=== PATIENT | male | born 1960 | race Caucasian/White ===

== ENCOUNTER 2021-04-21 21:15 | Inpatient (IN) | payer OTHER ==
[~2021-04-21] VITALS: Ht 175.3 cm; Wt 79.1 kg
[2021-04-21 14:29] VITALS: BP 140/83
[2021-04-21] MEDS ORDERED: DEXAMETHASONE SOD PHOS 4 MG/ML VIAL IVP ONE (21:30)
--- NOTE | 2021-04-21 21:30 | PHYS DOC ---
General Adult HPI: HPI: Patient is a 60 year old male who presents with progressive shortness of breath after testing positive for Covid. 04/07 Covid + Not vaccinated Has had progressive fatigue, myalgias, fevers, cough, and shortness of breath. Has some mild chest tightness especially when coughing. Has taken Z-pack x2. Denies having any medical problems or chronic medications. EMS had RA sat at 81%. Brought to 91% on 6lpm NC. Review of Systems: Review of Systems: Constitutional: + fever and chills. [] Eyes: Denies change in visual acuity. [] HENT: + nasal congestion. [] Respiratory: + cough and shortness of breath. [] Cardiovascular: Denies chest pain or edema. [] GI: Denies abdominal pain, nausea, vomiting, bloody stools or diarrhea. [] : Denies dysuria. [] Musculoskeletal: Denies back pain or joint pain. [] Integument: Denies rash. [] Neurologic: Denies headache, focal weakness or sensory changes. [] Endocrine: Denies polyuria or polydipsia. [] Lymphatic: Denies swollen glands. [] Psychiatric: Denies depression or anxiety. [] Heart Score: C/O Chest Pain: N/A Risk Factors: Risk Factors: DM, Current or recent (<one month) smoker, HTN, HLP, family history of CAD, obesity. Risk Scores: Score 0 - 3: 2.5% MACE over next 6 weeks - Discharge Home Score 4 - 6: 20.3% MACE over next 6 weeks - Admit for Clinical Observation Score 7 - 10: 72.7% MACE over next 6 weeks - Early Invasive Strategies Physical Exam: PE: Constitutional: Well developed, well nourished, no acute distress, non-toxic appearance. [] HENT: Normocephalic, atraumatic, bilateral external ears normal, oropharynx moist, no oral exudates, nose normal. [] Eyes: PERRLA, EOMI, conjunctiva normal, no discharge. [] Neck: Normal range of motion, no tenderness, supple, no stridor. [] Cardiovascular:Heart rate regular rhythm, no murmur [] Lungs & Thorax: Bilateral breath sounds clear to auscultation [] Abdomen: Bowel sounds normal, soft, no tenderness, no masses, no pulsatile masses. [] Skin: Warm, dry, no erythema, no rash. [] Back: No tenderness, no CVA tenderness. [] Extremities: No tenderness, no cyanosis, no clubbing, ROM intact, no edema. [] Neurologic: Alert and oriented X 3, normal motor function, normal sensory func tion, no focal deficits noted. [] Psychologic: Affect normal, judgement normal, mood normal. [] EKG: EKG: Sinus rhythm rate 96. Normal axis. Slightly low prolonged HI interval 206. Otherwise normal intervals. No ST elevations, depressions, or T wave inversions. [] Radiology/Procedures: Radiology/Procedures: [] Impression: [facility] [address] [place] [address] IMAGING REPORT Signed PATIENT: KATARINA REDDACCOUNT: [id number] : 1960 LOCATION: ER AGE: 60 SEX: M EXAM STATUS: PRE ER ORD. PHYSICIAN: REAL DE LA GARZA MD REASON: hypoxia, covid + PROCEDURE: CHEST AP ONLY XR CHEST 1V INDICATION: Reason: hypoxia, covid + / Spl. Instructions: / History: . COMPARISON STUDY: None. FINDINGS: Lungs: Normal lung volume. Patchy bilateral opacities. Pleura: No pleural effusion or pneumothorax. Heart and Mediastinum: The cardiomediastinal silhouette is normal. The great vessels of the thorax are normal. Bones and Soft Tissues: The bones and soft tissues are within normal limits. IMPRESSION: Patchy bilateral opacities, concerning for multifocal infection. Electronically signed by: Dre Turner MD (04/21/2021 10:08 PM) RUST DICTATED and SIGNED BY: DRE TURNER MD DATE: 04/21/21 [id number] 0 Course & Med Decision Making: Course & Med Decision Making Pertinent Labs and Imaging studies reviewed. (See chart for details) Patient is 60-year-old male who tested positive for Covid on 04/07 who is presented with progressive shortness of breath. Hypoxia to 81% on room air for EMS prior to arrival. Now satting in the low 90s on 6 L/min nasal cannula. Remainder vital signs are stable. Will clearly required admission given hypoxia. Will obtain CXR, labs, EKG. Will treat with supplemental oxygen and steroids. Will defer antibiotics until labs and CXR result. 2129 CXR w/ multifocal pneumonia. WBC 15.5, concerning for secondary infection. Will give CTX and doxycycline. 2231 Dragon Disclaimer: Dragon Disclaimer: This electronic medical record was generated, in whole or in part, using a voice recognition dictation system. Departure Departure Impression: Primary Impression: COVID-19 Additional Impressions: Acute respiratory failure with hypoxia Multifocal pneumonia Disposition: ADMITTED INPATIENT Admitting Physician: GOLDY Rocha) Condition: STABLE REAL DE LA GARZA MD Apr 21, 2021 21:30
[2021-04-21 21:38] VITALS: BP 128/73
[2021-04-21 22:08] VITALS: BP 119/71
--- NOTE | 2021-04-21 22:10 | RAD ---
XR CHEST 1V INDICATION: Reason: hypoxia, covid + / Spl. Instructions: / History: . COMPARISON STUDY: None. FINDINGS: Lungs: Normal lung volume. Patchy bilateral opacities. Pleura: No pleural effusion or pneumothorax. Heart and Mediastinum: The cardiomediastinal silhouette is normal. The great vessels of the thorax ar e normal. Bones and Soft Tissues: The bones and soft tissues are within normal limits. IMPRESSION: Patchy bilateral opacities, concerning for multifocal infection. Electronically signed by: Ac Turner MD (04/21/2021 10:08 PM) [facility]
[2021-04-21 22:12] LABS: BASO # 0.3 x10^3/uL (0.0-0.2); BASO % 2 % (0-3); EOS % 0 % (0-3); HEMATOCRIT 38.2 % (39.0-53.0); HEMOGLOBIN 13.8 g/dL (13.0-17.5); LYMPH # 0.4 x10^3/uL (1.0-4.8); LYMPH % 2 % (24-48); MEAN CORPUSCULAR HEMOGLOBIN 31 pg (25-35); MEAN CORPUSCULAR HGB CONC 36 g/dL (31-37); MEAN CORPUSCULAR VOLUME 86 fL (79-100); MONO # 0.9 x10^3/uL (0.0-1.1); MONO % 6 % (0-9); NEUT # 13.9 x10^3/uL (1.8-7.7); NEUT % 90 % (31-73); PLATELET COUNT 344 x10^3/uL (140-400); RED BLOOD COUNT 4.43 x10^6/uL (4.30-5.70); RED CELL DISTRIBUTION WIDTH 12.2 % (11.5-14.5); WHITE BLOOD COUNT 15.5 x10^3/uL (4.0-11.0)
[2021-04-21 22:25] LABS: CALCIUM 8.9 mg/dL (8.5-10.1); CREATININE 1.2 mg/dL (0.7-1.3); GFR 61.6; POTASSIUM 4.1 mmol/L (3.5-5.1)
[2021-04-21] MEDS ORDERED: cefTRIAXone IV Push 1 GM VIAL. IVP ONE (22:30)
[2021-04-21] MEDS ORDERED: DOXYCYCLINE HYCLATE 100 MG TABLET PO ONE (22:30)
[2021-04-21 22:32] LABS: ALBUMIN 2.3 g/dL (3.4-5.0); ALBUMIN/GLOBULIN RATIO 0.5 (1.0-1.7); TOTAL BILIRUBIN 0.8 mg/dL (0.2-1.0)
[2021-04-21 22:38] VITALS: BP 124/74
[2021-04-21 22:39] LABS: % LYMPHS 3 % (24-48); % MONOS 3 % (0-10); % SEGS 94 % (35-66); PLT ESTIMATE ADEQUATE (ADEQUATE)
[2021-04-21 23:08] VITALS: BP 119/76
--- NOTE | 2021-04-22 01:34 | EKG ---
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
[2021-04-22 02:07] VITALS: BP 118/76
[2021-04-22] MEDS ORDERED: No Home Meds (03:01)
[2021-04-22 07:00] VITALS: BP 105/68
[2021-04-22] MEDS ORDERED: PIP/TAZO PER PHARMACY MC PRN (08:15)
[2021-04-22] MEDS: PIPERACILLIN/TAZOBACTAM 3.375 GM in IV NORMAL SALINE 50ML 50 ML IV SCH ×4 (08:31→23:50)
[2021-04-22] MEDS: methylPREDNISolone SOD SUCC PF 40 MG/ML VIAL. IV SCH ×2 (09:24→21:06)
[2021-04-22] MEDS: MULTIVITAMIN with MINERAL TABLET. PO SCH (09:25)
[2021-04-22] MEDS: DOXYCYCLINE HYCLATE 100 MG in IV DEXTROSE 5% 100ML 100 ML IV SCH ×2 (09:25→21:05)
[2021-04-22] MEDS: guaiFENesin/CODEINE 100mg/10mg 5 ML LIQUID PO PRN ×2 (09:25→21:06)
[2021-04-22 11:00] VITALS: BP 111/69
[2021-04-22] MEDS ORDERED: REMDESIVIR LOAD in IV NORMAL SALINE 250ML TV IV ONE (11:00)
--- NOTE | 2021-04-22 12:50 | NUR ---
SS following for discharge planning. SS reviewed pt chart and discussed with pt RN. Pt is from home with spouse and is currently requiring oxygen at six liters nasal canula. COVID19 positive. Pt on IV Zosyn, IV Doxycycline, and IV Solu-Medrol. SS will continue to follow for discharge planning.
--- NOTE | 2021-04-22 12:55 | HP ---
ADMIT DATE: 04/22/2021 CHIEF COMPLAINT: Shortness of breath. 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 He presents with shortness of breath. He is COVID positive for the past 16 days. He states his symptoms are simply worsening. He cannot breathe. He can barely move. He increased his home meds, but that did not work. Moving makes it worse, sitting still makes it better. I discussed the case with ER physician. We are admitting the patient per COVID-19 protocol. PAST MEDICAL HISTORY: Benign. ALLERGIES: CODEINE. FAMILY HISTORY: Diabetes. SOCIAL HISTORY: Does not drink, smoke or take drugs. He works at the [employer]. MEDICATIONS: Reviewed, please refer to the medication. REVIEW OF SYSTEMS: GENERAL: No history of weight change, weakness or fevers. SKIN: No bruising, hair changes or rashes. EYES: No blurred, double or loss of vision. NOSE AND THROAT: No history of nosebleeds, hoarseness or sore throat. HEART: No history of palpitations, chest pain or shortness of breath on exertion. LUNGS: He complains of shortness of breath. GASTROINTESTINAL: Denies changes in appetite, nausea, vomiting, diarrhea or constipation. GENITOURINARY: No history of frequency, urgency, hesitancy or nocturia. NEUROLOGIC: Denies history of numbness, tingling, tremor or weakness. PSYCHIATRIC: No history of panic, anxiety or depression. ENDOCRINE: No history of heat or cold intolerance, polyuria or polydipsia. EXTREMITIES: Denies muscle weakness, joint pain, pain on walking or stiffness. PHYSICAL EXAMINATION: VITALS: Within normal limits and are stable. GENERAL: No apparent distress. Alert and oriented. HEENT: Normal cephalic atraumatic, external auditory canals are patent. EYES: Extraocular muscles are intact, pupils are equally round and reactive to light and accommodation. MUSCULOSKELETAL: Well developed, well nourished, good range of motion. ENDOCRINE: No thyromegaly was palpated. LYMPHATICS: No cervical chain or axillary nodes were noted. HEMATOPOIETIC: No bruising. NECK: Supple, no JVD, no thyromegaly was noted. LUNGS: Clear to auscultation in all lung eddy without rhonchi or wheezing. HEART: RRR, S1, S2 present. Peripheral pulses intact, no obvious murmurs were noted. ABDOMEN: Soft, nontender. Positive bowel sounds no organomegaly, normal bowel sounds. EXTREMITIES: Without any cyanosis, clubbing, or edema. Pedal pulses intact, Homans sign is negative. NEUROLOGIC: Normal speech, normal tone. A and O x 3, moves all extremities, no obvious focal deficits. PSYCHIATRIC: Normal affect, normal mood. Stable. SKIN: No ulcerations or rashes, good skin turgor, no jaundice. VASCULAR: Good capillary refill, neurovascular bundle appears to be intact. LABORATORY DATA: White count is 15. Electrolytes normal other than a sodium of 134. IMAGING: Chest x-ray shows bilateral haziness consistent with probable atypical pneumonia by my eye. ASSESSMENT AND PLAN: COVID-19, respiratory failure. The patient will be admitted. We will start IV remdesivir, IV Solu-Medrol, IV Zosyn, IV doxycycline, multiple vitamins with minerals, beta agonist and O2 per nasal cannula, codeine cough syrup and aspirin, home meds, DVT prophylaxis. Full code. PROGNOSIS: Guarded. MEERA DR: Edison TID: [id number]
[2021-04-22 15:00] VITALS: BP 119/71
[2021-04-22 19:41] VITALS: BP 112/66
[2021-04-22] MEDS: LACTOBACILLUS RHAMNOSUS GG 1 CAPSULE. PO SCH (21:05)
[2021-04-22 23:33] VITALS: BP 116/71
[2021-04-23 03:55] VITALS: BP 115/76
[2021-04-23] MEDS: PIPERACILLIN/TAZOBACTAM 3.375 GM in IV NORMAL SALINE 50ML 50 ML IV SCH ×3 (05:42→17:25)
[2021-04-23 07:00] VITALS: BP 116/74
[2021-04-23] MEDS: ASPIRIN CHEWABLE 81 MG TABLET. PO SCH (08:59)
[2021-04-23] MEDS: DOXYCYCLINE HYCLATE 100 MG in IV DEXTROSE 5% 100ML 100 ML IV SCH ×2 (08:59→20:34)
[2021-04-23] MEDS: MULTIVITAMIN with MINERAL TABLET. PO SCH (09:00)
[2021-04-23] MEDS: LACTOBACILLUS RHAMNOSUS GG 1 CAPSULE. PO SCH ×2 (09:00→20:34)
[2021-04-23] MEDS: guaiFENesin/CODEINE 100mg/10mg 5 ML LIQUID PO PRN ×2 (09:00→17:24)
[2021-04-23] MEDS: methylPREDNISolone SOD SUCC PF 40 MG/ML VIAL. IV SCH ×2 (09:00→20:34)
--- NOTE | 2021-04-23 09:16 | PDOC ---
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 He presents with shortness of breath. He is COVID positive for the past 16 days. He states his symptoms are simply worsening. He cannot breathe. He can barely move. He increased his home meds, but that did not work. Moving makes it worse, sitting still makes it better. I discussed the case with ER physician. We are admitting the patient per COVID-19 protocol. 04/23: Patient seen and examined. Patient endorses minor improvement in symptoms. Currently on 5L O2. Discussed with RN. Chart reviewed. Vitals/I&O Vitals/I&O: Vital Signs Date Time Temp Pulse Resp B/P (MAP) Pulse Ox O2 Delivery O2 Flow Rate FiO2 04/23/21 07:00 97.5 67 18 116/74 (88) 93 Nasal Cannula 6.0 97.5 I & O 04/22/21 04/22/21 04/23/21 15:00 23:00 07:00 Intake Total 600 ml 300 ml 610 ml Output Total 400 ml Balance 200 ml 300 ml 610 ml Physical Exam General: Alert, Oriented X3, Cooperative, mild distress Heart: Regular rate Lungs: Clear Abdomen: Normal bowel sounds, No tenderness Extremities: No clubbing, No cyanosis, No edema Review of Systems Review of Systems: Patient endorses shortness of breath. Patient denies vomiting. Assessment and Plan Assessmemt and Plan Problems Medical Problems: (1) Acute respiratory failure with hypoxia Status: Acute (2) COVID-19 Status: Acute (3) Multifocal pneumonia Status: Acute A: Acute respiratory failure with hypoxia Acute COVID-19 infection (Onset: 04/06/21) Acute multifocal pneumonia Plan: 1. Continue COVID-19 protocol (IV Remdesivir, IV Solu-Medrol, IV Zosyn, IV doxycycline, vitamins with minerals, O2 per nasal cannula, Robitussin, aspirin) 2. Encourage PO intake (regular diet) 3. Trend labs 4. PT/OT 5. Home meds 6. DVT prophylaxis 7. Full code. Comment Review of Relevant I have reviewed the following items heidy (where applicable) has been applied. Medications: Current Medications Medications (Trade) Dose Ordered Sig/Annita Route PRN Reason Start Time Stop Time Status Last Admin Dose Admin Multivitamins (Thera M Plus) 1 tab DAILY PO 04/22/21 09:00 04/22/21 09:25 Doxycycline Hyclate 100 mg/ Dextrose 100 ml @ 50 mls/hr Q12HR IV 04/22/21 09:00 04/22/21 21:05 Methylprednisolone Sodium Succinate (SOLU-Medrol 40MG VIAL) 40 mg BID IV 04/22/21 09:00 04/22/21 21:06 Remdesivir 200 mg/ Sodium Chloride 210 ml @ 210 mls/hr 1X ONCE IV 04/22/21 11:00 04/22/21 11:59 DC 04/22/21 11:47 Lactobacillus Rhamnosus (Culturelle) 1 cap BID PO 04/22/21 21:00 04/22/21 21:05 Justifications for Admission Other Justification PORTER YEPEZ III DO Apr 23, 2021 09:16
[2021-04-23 11:00] VITALS: BP 115/71
[2021-04-23] MEDS: REMDESIVIR 100mg in NORMAL SALINE 250ML X 4 DAYS IV SCH (11:59)
[2021-04-23] MEDS ORDERED: POLYETHYLENE GLYCOL 3350 17 GM PACKET. PO PRN (14:15)
[2021-04-23] MEDS ORDERED: DOCUSATE SODIUM 100 MG CAPSULE. PO PRN (14:15)
[2021-04-23 15:00] VITALS: BP 116/75
[2021-04-23 19:00] VITALS: BP 108/64
[2021-04-23 23:00] VITALS: BP 133/77
[2021-04-24] MEDS: PIPERACILLIN/TAZOBACTAM 3.375 GM in IV NORMAL SALINE 50ML 50 ML IV SCH ×4 (00:27→17:53)
[2021-04-24 03:00] VITALS: BP 121/74
[2021-04-24] MEDS: guaiFENesin/CODEINE 100mg/10mg 5 ML LIQUID PO PRN ×3 (06:11→22:18)
[2021-04-24 07:00] VITALS: BP 115/77
[2021-04-24 08:01] LABS: BASO % 0 % (0-3); EOS % 0 % (0-3); HEMATOCRIT 38.7 % (39.0-53.0); HEMOGLOBIN 13.5 g/dL (13.0-17.5); LYMPH # 0.4 x10^3/uL (1.0-4.8); LYMPH % 4 % (24-48); MEAN CORPUSCULAR HEMOGLOBIN 31 pg (25-35); MEAN CORPUSCULAR HGB CONC 35 g/dL (31-37); MEAN CORPUSCULAR VOLUME 89 fL (79-100); MONO # 0.6 x10^3/uL (0.0-1.1); MONO % 6 % (0-9); NEUT # 9.7 x10^3/uL (1.8-7.7); NEUT % 91 % (31-73); PLATELET COUNT 322 x10^3/uL (140-400); RED BLOOD COUNT 4.35 x10^6/uL (4.30-5.70); RED CELL DISTRIBUTION WIDTH 12.3 % (11.5-14.5); WHITE BLOOD COUNT 10.7 x10^3/uL (4.0-11.0)
[2021-04-24 08:20] LABS: ALBUMIN/GLOBULIN RATIO 0.5 (1.0-1.7); CALCIUM 8.7 mg/dL (8.5-10.1); CREATININE 1.1 mg/dL (0.7-1.3); GFR 68.1; POTASSIUM 4.5 mmol/L (3.5-5.1); TOTAL BILIRUBIN 0.8 mg/dL (0.2-1.0); TOTAL PROTEIN 6.1 g/dL (6.4-8.2)
[2021-04-24] MEDS: ASPIRIN CHEWABLE 81 MG TABLET. PO SCH (08:41)
[2021-04-24] MEDS: MULTIVITAMIN with MINERAL TABLET. PO SCH (08:41)
[2021-04-24] MEDS: LACTOBACILLUS RHAMNOSUS GG 1 CAPSULE. PO SCH ×2 (08:41→22:17)
[2021-04-24] MEDS: methylPREDNISolone SOD SUCC PF 40 MG/ML VIAL. IV SCH ×2 (08:41→22:17)
[2021-04-24] MEDS: DOXYCYCLINE HYCLATE 100 MG in IV DEXTROSE 5% 100ML 100 ML IV SCH ×2 (08:45→22:16)
[2021-04-24 10:37] VITALS: BP 121/80
[2021-04-24] MEDS: REMDESIVIR 100mg in NORMAL SALINE 250ML X 4 DAYS IV SCH (11:32)
--- NOTE | 2021-04-24 11:41 | PDOC ---
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 He presents with shortness of breath. He is COVID positive for the past 16 days. He states his symptoms are simply worsening. He cannot breathe. He can barely move. He increased his home meds, but that did not work. Moving makes it worse, sitting still makes it better. I discussed the case with ER physician. We are admitting the patient per COVID-19 protocol. 04/23: Patient seen and examined. Patient endorses minor improvement in symptoms. Currently on 5L O2. Discussed with RN. Chart reviewed. 04/24: Patient seen and examined. He continues to be on 5L O2 per nasal cannula. He previously endorsed constipation and was started on laxatives; today he had 1 BM. He endorses acid reflux. Discussed with RN. Chart Reviewed. Labs show minor improvement, however, he appears in greater distress than previous day. Vitals/I&O Vitals/I&O: Vital Signs Date Time Temp Pulse Resp B/P (MAP) Pulse Ox O2 Delivery O2 Flow Rate FiO2 04/24/21 10:37 97.7 85 18 121/80 (94) 93 Nasal Cannula 6.0 97.7 I & O 04/23/21 04/23/21 04/24/21 15:00 23:00 07:00 Intake Total 400 ml 240 ml Balance 400 ml 240 ml Physical Exam General: Alert, Oriented X3, Cooperative, mild distress Heart: Regular rate Lungs: Clear Abdomen: Normal bowel sounds, No tenderness Extremities: No clubbing, No cyanosis, No edema Labs Labs: Laboratory Tests Test 04/24/21 06:40 White Blood Count 10.7 x10^3/uL (4.0-11.0) Red Blood Count 4.35 x10^6/uL (4.30-5.70) Hemoglobin 13.5 g/dL (13.0-17.5) Hematocrit 38.7 % (39.0-53.0) Mean Corpuscular Volume 89 fL (79-100) Mean Corpuscular Hemoglobin 31 pg (25-35) Mean Corpuscular Hemoglobin Concent 35 g/dL (31-37) Red Cell Distribution Width 12.3 % (11.5-14.5) Platelet Count 322 x10^3/uL (140-400) Neutrophils (%) (Auto) 91 % (31-73) Lymphocytes (%) (Auto) 4 % (24-48) Monocytes (%) (Auto) 6 % (0-9) Eosinophils (%) (Auto) 0 % (0-3) Basophils (%) (Auto) 0 % (0-3) Neutrophils # (Auto) 9.7 x10^3/uL (1.8-7.7) Lymphocytes # (Auto) 0.4 x10^3/uL (1.0-4.8) Monocytes # (Auto) 0.6 x10^3/uL (0.0-1.1) Eosinophils # (Auto) 0.0 x10^3/uL (0.0-0.7) Basophils # (Auto) 0.0 x10^3/uL (0.0-0.2) Sodium Level 139 mmol/L (136-145) Potassium Level 4.5 mmol/L (3.5-5.1) Chloride Level 106 mmol/L (98-107) Carbon Dioxide Level 29 mmol/L (21-32) Anion Gap 4 (6-14) Blood Urea Nitrogen 20 mg/dL (8-26) Creatinine 1.1 mg/dL (0.7-1.3) Estimated GFR (Cockcroft-Gault) 68.1 BUN/Creatinine Ratio 18 (6-20) Glucose Level 114 mg/dL (70-99) Calcium Level 8.7 mg/dL (8.5-10.1) Total Bilirubin 0.8 mg/dL (0.2-1.0) Aspartate Amino Transf (AST/SGOT) 35 U/L (15-37) Alanine Aminotransferase (ALT/SGPT) 78 U/L (16-63) Alkaline Phosphatase 80 U/L (46-116) Total Protein 6.1 g/dL (6.4-8.2) Albumin 2.0 g/dL (3.4-5.0) Albumin/Globulin Ratio 0.5 (1.0-1.7) Review of Systems Review of Systems: Patient endorses weakness and shortness of breath. Assessment and Plan Assessmemt and Plan Problems Medical Problems: (1) Acute respiratory failure with hypoxia Status: Acute (2) COVID-19 Status: Acute (3) Multifocal pneumonia Status: Acute Acute respiratory failure with hypoxia Acute COVID-19 infection (Onset: 04/06/21) Acute multifocal pneumonia Plan: 1. Continue COVID-19 protocol (IV Remdesivir, IV Solu-Medrol, IV Zosyn, IV doxycycline, vitamins with minerals, O2 per nasal cannula, Robitussin, aspirin) 2. Start Lovenox 40mg Q.D. - DVT prophylaxis 3. Start Protonix 40mg PO - for acid reflux 4. Trends labs 5. Encourage PO intake (regular diet) 6. Home meds 7. PT/OT 8. Full code. Comment Review of Relevant I have reviewed the following items heidy (where applicable) has been applied. Medications: Current Medications Medications (Trade) Dose Ordered Sig/Annita Route PRN Reason Start Time Stop Time Status Last Admin Dose Admin Docusate Sodium (Colace) 100 mg PRN DAILY PRN PO HARD STOOLS 04/23/21 14:15 04/24/21 08:41 Polyethylene Glycol (miraLAX PACKET) 17 gm PRN DAILY PRN PO CONSTIPATION 04/23/21 14:15 04/24/21 08:41 Justifications for Admission Other Justification PORTER YEPEZ III DO Apr 24, 2021 11:41
--- NOTE | 2021-04-24 12:17 | NUR ---
SW following. Discussed with RN, pt from home with spouse, 6L (does not use oxygen at home), regular diet. COVID-19 positive. Pt will need a 6 minute walk prior to discharge if still requiring oxygen. SW will continue to follow.
[2021-04-24] MEDS: ENOXAPARIN 40 MG/0.4 ML SYRINGE. SQ SCH (13:16)
[2021-04-24] MEDS: PANTOPRAZOLE 40 MG TABLET.DR. PO SCH (13:17)
[2021-04-24 15:00] VITALS: BP 121/72
[2021-04-24 19:00] VITALS: BP 122/59
[2021-04-24] MEDS: diphenhydrAMINE HCL 25 MG CAPSULE PO PRN (22:34)
[2021-04-24 23:00] VITALS: BP 107/67
[2021-04-25 03:01] VITALS: BP 127/80
[2021-04-25] MEDS: PIPERACILLIN/TAZOBACTAM 3.375 GM in IV NORMAL SALINE 50ML 50 ML IV SCH ×4 (05:43→20:04)
[2021-04-25 07:00] VITALS: BP 107/66
[2021-04-25 08:08] LABS: BASO % 0 % (0-3); EOS % 0 % (0-3); HEMATOCRIT 40.7 % (39.0-53.0); HEMOGLOBIN 14.1 g/dL (13.0-17.5); LYMPH # 0.4 x10^3/uL (1.0-4.8); LYMPH % 5 % (24-48); MEAN CORPUSCULAR HEMOGLOBIN 31 pg (25-35); MEAN CORPUSCULAR HGB CONC 35 g/dL (31-37); MEAN CORPUSCULAR VOLUME 88 fL (79-100); MONO # 0.6 x10^3/uL (0.0-1.1); MONO % 6 % (0-9); NEUT # 8.2 x10^3/uL (1.8-7.7); NEUT % 89 % (31-73); PLATELET COUNT 339 x10^3/uL (140-400); RED CELL DISTRIBUTION WIDTH 12.6 % (11.5-14.5); WHITE BLOOD COUNT 9.3 x10^3/uL (4.0-11.0)
[2021-04-25 08:19] LABS: ALBUMIN 2.2 g/dL (3.4-5.0); ALBUMIN/GLOBULIN RATIO 0.5 (1.0-1.7); CALCIUM 9.1 mg/dL (8.5-10.1); CREATININE 1.1 mg/dL (0.7-1.3); GFR 68.1; POTASSIUM 5.5 mmol/L (3.5-5.1); TOTAL BILIRUBIN 0.9 mg/dL (0.2-1.0); TOTAL PROTEIN 6.3 g/dL (6.4-8.2)
[2021-04-25] MEDS: LACTOBACILLUS RHAMNOSUS GG 1 CAPSULE. PO SCH ×2 (08:51→20:30)
[2021-04-25] MEDS: PANTOPRAZOLE 40 MG TABLET.DR. PO SCH (08:51)
[2021-04-25] MEDS: ASPIRIN CHEWABLE 81 MG TABLET. PO SCH (08:51)
[2021-04-25] MEDS: MULTIVITAMIN with MINERAL TABLET. PO SCH (08:51)
[2021-04-25] MEDS: DOXYCYCLINE HYCLATE 100 MG in IV DEXTROSE 5% 100ML 100 ML IV SCH ×2 (08:52→20:31)
[2021-04-25] MEDS: methylPREDNISolone SOD SUCC PF 40 MG/ML VIAL. IV SCH ×2 (08:52→20:30)
--- NOTE | 2021-04-25 10:19 | PDOC ---
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 He presents with shortness of breath. He is COVID positive for the past 16 days. He states his symptoms are simply worsening. He cannot breathe. He can barely move. He increased his home meds, but that did not work. Moving makes it worse, sitting still makes it better. I discussed the case with ER physician. We are admitting the patient per COVID-19 protocol. 04/23: Patient seen and examined. Patient endorses minor improvement in symptoms. Currently on 5L O2 (04/25 Correction: 6L O2). Discussed with RN. Chart reviewed. 04/24: Patient seen and examined. He continues to be on 5L O2 (04/25 correction: 6L O2). He previously endorsed constipation and was started on laxatives; today he had 1 BM. He endorses acid reflux. Discussed with RN. Chart Reviewed. Labs show minor improvement, however, he appears in greater distress than previous day. 04/25: Patient seen and examined. His O2 requirements have decreased to 4.5L O2 per nasal cannula. He endorses feeling a lot better and looks less distressed. Exertional dyspnea continues to occur when walking to the bathroom. Discussed with RN. Chart reviewed. Vitals/I&O Vitals/I&O: Vital Signs Date Time Temp Pulse Resp B/P (MAP) Pulse Ox O2 Delivery O2 Flow Rate FiO2 04/25/21 07:00 97.7 56 20 107/66 (80) 91 97.7 04/25/21 03:01 Nasal Cannula 04/24/21 20:05 4.5 I & O 04/24/21 04/24/21 04/25/21 15:00 23:00 07:00 Output Total 600 ml 300 ml Balance -600 ml -300 ml Physical Exam General: Alert, Oriented X3, Cooperative, No acute distress Heart: Regular rate Lungs: Clear Abdomen: Normal bowel sounds, No tenderness Extremities: No clubbing, No cyanosis, No edema Labs Labs: Laboratory Tests Test 04/25/21 07:40 White Blood Count 9.3 x10^3/uL (4.0-11.0) Red Blood Count 4.60 x10^6/uL (4.30-5.70) Hemoglobin 14.1 g/dL (13.0-17.5) Hematocrit 40.7 % (39.0-53.0) Mean Corpuscular Volume 88 fL (79-100) Mean Corpuscular Hemoglobin 31 pg (25-35) Mean Corpuscular Hemoglobin Concent 35 g/dL (31-37) Red Cell Distribution Width 12.6 % (11.5-14.5) Platelet Count 339 x10^3/uL (140-400) Neutrophils (%) (Auto) 89 % (31-73) Lymphocytes (%) (Auto) 5 % (24-48) Monocytes (%) (Auto) 6 % (0-9) Eosinophils (%) (Auto) 0 % (0-3) Basophils (%) (Auto) 0 % (0-3) Neutrophils # (Auto) 8.2 x10^3/uL (1.8-7.7) Lymphocytes # (Auto) 0.4 x10^3/uL (1.0-4.8) Monocytes # (Auto) 0.6 x10^3/uL (0.0-1.1) Eosinophils # (Auto) 0.0 x10^3/uL (0.0-0.7) Basophils # (Auto) 0.0 x10^3/uL (0.0-0.2) Sodium Level 141 mmol/L (136-145) Potassium Level 5.5 mmol/L (3.5-5.1) Chloride Level 106 mmol/L (98-107) Carbon Dioxide Level 30 mmol/L (21-32) Anion Gap 5 (6-14) Blood Urea Nitrogen 20 mg/dL (8-26) Creatinine 1.1 mg/dL (0.7-1.3) Estimated GFR (Cockcroft-Gault) 68.1 BUN/Creatinine Ratio 18 (6-20) Glucose Level 120 mg/dL (70-99) Calcium Level 9.1 mg/dL (8.5-10.1) Total Bilirubin 0.9 mg/dL (0.2-1.0) Aspartate Amino Transf (AST/SGOT) 40 U/L (15-37) Alanine Aminotransferase (ALT/SGPT) 102 U/L (16-63) Alkaline Phosphatase 58 U/L (46-116) Total Protein 6.3 g/dL (6.4-8.2) Albumin 2.2 g/dL (3.4-5.0) Albumin/Globulin Ratio 0.5 (1.0-1.7) Review of Systems Review of Systems: Patient denies nausea and vomiting. Assessment and Plan Assessmemt and Plan Problems Medical Problems: (1) Acute respiratory failure with hypoxia Status: Acute (2) COVID-19 Status: Acute (3) Multifocal pneumonia Status: Acute Acute respiratory failure with hypoxia Acute COVID-19 infection (Onset: 04/06/21) Acute multifocal pneumonia Plan: 1. Continue COVID-19 protocol (IV Remdesivir, IV Solu-Medrol, IV Zosyn, IV doxycycline, vitamins with minerals, O2 per nasal cannula, Robitussin, aspirin) 2. DVT prophylaxis: Lovenox 3. Trends labs 4. Encourage PO intake (regular diet) 5. Home meds 6. PT/OT 7. Full code. 8. Discharge disposition pending Comment Review of Relevant I have reviewed the following items heidy (where applicable) has been applied. Medications: Current Medications Medications (Trade) Dose Ordered Sig/Annita Route PRN Reason Start Time Stop Time Status Last Admin Dose Admin Enoxaparin Sodium (Lovenox 40mg Syringe) 40 mg Q24H SQ 04/24/21 12:00 04/24/21 13:16 Pantoprazole Sodium (Protonix) 40 mg DAILYAC PO 04/24/21 12:00 04/25/21 08:51 Justifications for Admission Other Justification PORTER YEPEZ III DO Apr 25, 2021 10:19
[2021-04-25 11:00] VITALS: BP 114/72
--- NOTE | 2021-04-25 11:50 | NUR ---
SW following. Discussed with RN, pt from home with spouse, 4.5L (does not use oxygen at home), improving. Pt will need a 6 minute walk prior to discharge. COVID19 positive. SW will continue to follow.
[2021-04-25] MEDS: REMDESIVIR 100mg in NORMAL SALINE 250ML X 4 DAYS IV SCH (12:00)
[2021-04-25 15:00] VITALS: BP 125/79
[2021-04-25] MEDS: ENOXAPARIN 40 MG/0.4 ML SYRINGE. SQ SCH (17:26)
[2021-04-25 19:55] VITALS: BP 112/76
[2021-04-25] MEDS: diphenhydrAMINE HCL 25 MG CAPSULE PO PRN (22:08)
[2021-04-25 23:28] VITALS: BP 133/68
[2021-04-26] MEDS: PIPERACILLIN/TAZOBACTAM 3.375 GM in IV NORMAL SALINE 50ML 50 ML IV SCH ×3 (01:22→11:43)
[2021-04-26 03:25] VITALS: BP 104/70
[2021-04-26 06:38] VITALS: BP 120/75
[2021-04-26 06:52] LABS: ALBUMIN 2.2 g/dL (3.4-5.0); ALBUMIN/GLOBULIN RATIO 0.7 (1.0-1.7); CALCIUM 8.4 mg/dL (8.5-10.1); CREATININE 0.9 mg/dL (0.7-1.3); GFR 85.8; POTASSIUM 5.3 mmol/L (3.5-5.1); TOTAL BILIRUBIN 0.5 mg/dL (0.2-1.0); TOTAL PROTEIN 5.4 g/dL (6.4-8.2)
[2021-04-26 07:41] LABS: BASO # 0.1 x10^3/uL (0.0-0.2); BASO % 1 % (0-3); EOS % 0 % (0-3); HEMOGLOBIN 14.1 g/dL (13.0-17.5); LYMPH # 0.5 x10^3/uL (1.0-4.8); LYMPH % 5 % (24-48); MEAN CORPUSCULAR HEMOGLOBIN 31 pg (25-35); MEAN CORPUSCULAR HGB CONC 35 g/dL (31-37); MEAN CORPUSCULAR VOLUME 88 fL (79-100); MONO # 0.8 x10^3/uL (0.0-1.1); MONO % 7 % (0-9); NEUT % 87 % (31-73); PLATELET COUNT 320 x10^3/uL (140-400); RED BLOOD COUNT 4.53 x10^6/uL (4.30-5.70); RED CELL DISTRIBUTION WIDTH 12.5 % (11.5-14.5); WHITE BLOOD COUNT 10.3 x10^3/uL (4.0-11.0)
[2021-04-26] MEDS: ASPIRIN CHEWABLE 81 MG TABLET. PO SCH (08:50)
[2021-04-26] MEDS: MULTIVITAMIN with MINERAL TABLET. PO SCH (08:50)
[2021-04-26] MEDS: LACTOBACILLUS RHAMNOSUS GG 1 CAPSULE. PO SCH ×2 (08:50→20:54)
[2021-04-26] MEDS: PANTOPRAZOLE 40 MG TABLET.DR. PO SCH (08:50)
[2021-04-26] MEDS: methylPREDNISolone SOD SUCC PF 40 MG/ML VIAL. IV SCH (09:00)
[2021-04-26] MEDS: DOXYCYCLINE HYCLATE 100 MG in IV DEXTROSE 5% 100ML 100 ML IV SCH (09:00)
[2021-04-26] MEDS: guaiFENesin/CODEINE 100mg/10mg 5 ML LIQUID PO PRN (09:07)
[2021-04-26 11:00] VITALS: BP 109/71
[2021-04-26] MEDS: REMDESIVIR 100mg in NORMAL SALINE 250ML X 4 DAYS IV SCH (11:00)
--- NOTE | 2021-04-26 11:37 | PDOC ---
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 He presents with shortness of breath. He is COVID positive for the past 16 days. He states his symptoms are simply worsening. He cannot breathe. He can barely move. He increased his home meds, but that did not work. Moving makes it worse, sitting still makes it better. I discussed the case with ER physician. We are admitting the patient per COVID-19 protocol. 04/23: Patient seen and examined. Patient endorses minor improvement in symptoms. Currently on 5L O2 (04/25 Correction: 6L O2). Discussed with RN. Chart reviewed. 04/24: Patient seen and examined. He continues to be on 5L O2 (04/25 correction: 6L O2). He previously endorsed constipation and was started on laxatives; today he had 1 BM. He endorses acid reflux. Discussed with RN. Chart Reviewed. Labs show minor improvement, however, he appears in greater distress than previous day. 04/25: Patient seen and examined. His O2 requirements have decreased to 4.5L O2 per nasal cannula. He endorses feeling a lot better and looks less distressed. Exertional dyspnea continues to occur when walking to the bathroom. Discussed with RN. Chart reviewed. 04/26: Patient seen and examined. Discussed with RN. Chart reviewed. He endorses improvement in respiratory symptoms, however, mild dyspnea on exertion still present. He endorses decreased weakness. Continues to be on 4.5L O2 per nasal cannula. Discharge anticipated when O2 requirements decrease to 2L. Vitals/I&O Vitals/I&O: Vital Signs Date Time Temp Pulse Resp B/P (MAP) Pulse Ox O2 Delivery O2 Flow Rate FiO2 04/26/21 06:38 98.0 67 16 120/75 (90) 94 Nasal Cannula 4.5 98.0 I & O 04/25/21 04/25/21 04/26/21 15:00 23:00 07:00 Intake Total 220 ml 220 ml 380 ml Output Total 1000 ml 652 ml Balance -780 ml 220 ml -272 ml Physical Exam General: Alert, Oriented X3, Cooperative, No acute distress Heart: Regular rate Lungs: Clear Abdomen: Normal bowel sounds, No tenderness Extremities: No clubbing, No cyanosis, No edema Labs Labs: Laboratory Tests Test 04/26/21 04:40 04/26/21 07:35 Sodium Level 138 mmol/L (136-145) Potassium Level 5.3 mmol/L (3.5-5.1) Chloride Level 104 mmol/L (98-107) Carbon Dioxide Level 25 mmol/L (21-32) Anion Gap 9 (6-14) Blood Urea Nitrogen 21 mg/dL (8-26) Creatinine 0.9 mg/dL (0.7-1.3) Estimated GFR (Cockcroft-Gault) 85.8 BUN/Creatinine Ratio 23 (6-20) Glucose Level 137 mg/dL (70-99) Calcium Level 8.4 mg/dL (8.5-10.1) Total Bilirubin 0.5 mg/dL (0.2-1.0) Aspartate Amino Transf (AST/SGOT) 56 U/L (15-37) Alanine Aminotransferase (ALT/SGPT) 147 U/L (16-63) Alkaline Phosphatase 75 U/L (46-116) Total Protein 5.4 g/dL (6.4-8.2) Albumin 2.2 g/dL (3.4-5.0) Albumin/Globulin Ratio 0.7 (1.0-1.7) White Blood Count 10.3 x10^3/uL (4.0-11.0) Red Blood Count 4.53 x10^6/uL (4.30-5.70) Hemoglobin 14.1 g/dL (13.0-17.5) Hematocrit 40.0 % (39.0-53.0) Mean Corpuscular Volume 88 fL (79-100) Mean Corpuscular Hemoglobin 31 pg (25-35) Mean Corpuscular Hemoglobin Concent 35 g/dL (31-37) Red Cell Distribution Width 12.5 % (11.5-14.5) Platelet Count 320 x10^3/uL (140-400) Neutrophils (%) (Auto) 87 % (31-73) Lymphocytes (%) (Auto) 5 % (24-48) Monocytes (%) (Auto) 7 % (0-9) Eosinophils (%) (Auto) 0 % (0-3) Basophils (%) (Auto) 1 % (0-3) Neutrophils # (Auto) 9.0 x10^3/uL (1.8-7.7) Lymphocytes # (Auto) 0.5 x10^3/uL (1.0-4.8) Monocytes # (Auto) 0.8 x10^3/uL (0.0-1.1) Eosinophils # (Auto) 0.0 x10^3/uL (0.0-0.7) Basophils # (Auto) 0.1 x10^3/uL (0.0-0.2) Review of Systems Review of Systems: Patient nausea and vomiting Assessment and Plan Assessmemt and Plan Problems Medical Problems: (1) Acute respiratory failure with hypoxia Status: Acute (2) COVID-19 Status: Acute (3) Multifocal pneumonia Status: Acute Acute respiratory failure with hypoxia Acute COVID-19 infection (Onset: 04/06/21) Acute multifocal pneumonia Plan: 1. COVID-19 protocol -Begin PO steriods, Augmentin, and doxycycline -Continue vitamins and minerals, O2, Robitussin, and aspirin -Remdesiver stopped on 04/26 2. DVT prophylaxis: Lovenox 3. Trends labs 4. Encourage PO intake (regular diet) 5. Home meds 6. PT/OT 7. Full code. 8. Discharge disposition pending- anticipated when O2 requirements decrease to 2L Comment Review of Relevant I have reviewed the following items heidy (where applicable) has been applied. Justifications for Admission Other Justification PORTER YEPEZ III DO Apr 26, 2021 11:37
[2021-04-26] MEDS: ENOXAPARIN 40 MG/0.4 ML SYRINGE. SQ SCH (12:48)
[2021-04-26] MEDS: methylPREDNISolone 4 MG TABLET. PO SCH ×4 (14:30→20:55)
[2021-04-26 15:08] VITALS: BP 109/70
[2021-04-26 19:50] VITALS: BP 111/75
[2021-04-26] MEDS: DOXYCYCLINE HYCLATE 100 MG TABLET PO SCH (20:54)
[2021-04-26] MEDS: AMOXICILLIN/K CLAV 875/125MG TABLET. PO SCH (20:54)
[2021-04-26] MEDS: diphenhydrAMINE HCL 25 MG CAPSULE PO PRN (22:52)
[2021-04-26 23:08] VITALS: BP 104/70
[2021-04-27 03:26] VITALS: BP 113/73
[2021-04-27 06:54] VITALS: BP 106/73
[2021-04-27 07:11] LABS: BASO # 0.1 x10^3/uL (0.0-0.2); BASO % 1 % (0-3); EOS % 0 % (0-3); HEMATOCRIT 42.7 % (39.0-53.0); HEMOGLOBIN 14.8 g/dL (13.0-17.5); LYMPH # 0.5 x10^3/uL (1.0-4.8); LYMPH % 5 % (24-48); MEAN CORPUSCULAR HEMOGLOBIN 31 pg (25-35); MEAN CORPUSCULAR HGB CONC 35 g/dL (31-37); MEAN CORPUSCULAR VOLUME 89 fL (79-100); MONO # 0.7 x10^3/uL (0.0-1.1); MONO % 8 % (0-9); NEUT # 8.3 x10^3/uL (1.8-7.7); NEUT % 86 % (31-73); PLATELET COUNT 294 x10^3/uL (140-400); RED BLOOD COUNT 4.81 x10^6/uL (4.30-5.70); RED CELL DISTRIBUTION WIDTH 12.8 % (11.5-14.5); WHITE BLOOD COUNT 9.6 x10^3/uL (4.0-11.0)
[2021-04-27 07:22] LABS: ALBUMIN 2.2 g/dL (3.4-5.0); ALBUMIN/GLOBULIN RATIO 0.6 (1.0-1.7); CALCIUM 8.3 mg/dL (8.5-10.1); CREATININE 1.1 mg/dL (0.7-1.3); GFR 68.1; POTASSIUM 4.7 mmol/L (3.5-5.1); TOTAL BILIRUBIN 0.5 mg/dL (0.2-1.0); TOTAL PROTEIN 6.1 g/dL (6.4-8.2)
[2021-04-27] MEDS: DOXYCYCLINE HYCLATE 100 MG TABLET PO SCH ×2 (09:22→20:57)
[2021-04-27] MEDS: methylPREDNISolone 4 MG TABLET. PO SCH ×3 (09:24→17:28)
[2021-04-27] MEDS: LACTOBACILLUS RHAMNOSUS GG 1 CAPSULE. PO SCH ×2 (09:24→20:57)
[2021-04-27] MEDS: MULTIVITAMIN with MINERAL TABLET. PO SCH (09:24)
[2021-04-27] MEDS: ASPIRIN CHEWABLE 81 MG TABLET. PO SCH (09:24)
[2021-04-27] MEDS: AMOXICILLIN/K CLAV 875/125MG TABLET. PO SCH ×2 (09:24→20:57)
[2021-04-27] MEDS: PANTOPRAZOLE 40 MG TABLET.DR. PO SCH (09:25)
--- NOTE | 2021-04-27 10:56 | PDOC ---
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 He presents with shortness of breath. He is COVID positive for the past 16 days. He states his symptoms are simply worsening. He cannot breathe. He can barely move. He increased his home meds, but that did not work. Moving makes it worse, sitting still makes it better. I discussed the case with ER physician. We are admitting the patient per COVID-19 protocol. 04/23: Patient seen and examined. Patient endorses minor improvement in symptoms. Currently on 5L O2 (04/25 Correction: 6L O2). Discussed with RN. Chart reviewed. 04/24: Patient seen and examined. He continues to be on 5L O2 (04/25 correction: 6L O2). He previously endorsed constipation and was started on laxatives; today he had 1 BM. He endorses acid reflux. Discussed with RN. Chart Reviewed. Labs show minor improvement, however, he appears in greater distress than previous day. 04/25: Patient seen and examined. His O2 requirements have decreased to 4.5L O2 per nasal cannula. He endorses feeling a lot better and looks less distressed. Exertional dyspnea continues to occur when walking to the bathroom. Discussed with RN. Chart reviewed. 04/26: Patient seen and examined. Discussed with RN. Chart reviewed. He endorses improvement in respiratory symptoms, however, mild dyspnea on exertion still present. He endorses decreased weakness. Continues to be on 4.5L O2 per nasal cannula. Discharge anticipated when O2 requirements decrease to 2L. 04/27: Patient seen and examined. Discussed with RN. Chart reviewed. He endorses continued improvement in respiratory symptoms. Mild dyspnea on exertion. Patient on 4.5L O2 per nasal cannula. Discharge anticipated when O2 requirements decrease to 2L. Vitals/I&O Vitals/I&O: Vital Signs Date Time Temp Pulse Resp B/P (MAP) Pulse Ox O2 Delivery O2 Flow Rate FiO2 04/27/21 08:00 Nasal Cannula 4.5 04/27/21 06:54 98.2 75 16 106/73 (84) 94 98.2 I & O 04/26/21 04/26/21 04/27/21 15:00 23:00 07:00 Intake Total 700 ml 360 ml 120 ml Balance 700 ml 360 ml 120 ml Physical Exam General: Alert, Oriented X3, Cooperative, No acute distress Heart: Regular rate Lungs: Clear Abdomen: Normal bowel sounds, No tenderness Extremities: No clubbing, No cyanosis, No edema Labs Labs: Laboratory Tests Test 04/27/21 06:15 White Blood Count 9.6 x10^3/uL (4.0-11.0) Red Blood Count 4.81 x10^6/uL (4.30-5.70) Hemoglobin 14.8 g/dL (13.0-17.5) Hematocrit 42.7 % (39.0-53.0) Mean Corpuscular Volume 89 fL (79-100) Mean Corpuscular Hemoglobin 31 pg (25-35) Mean Corpuscular Hemoglobin Concent 35 g/dL (31-37) Red Cell Distribution Width 12.8 % (11.5-14.5) Platelet Count 294 x10^3/uL (140-400) Neutrophils (%) (Auto) 86 % (31-73) Lymphocytes (%) (Auto) 5 % (24-48) Monocytes (%) (Auto) 8 % (0-9) Eosinophils (%) (Auto) 0 % (0-3) Basophils (%) (Auto) 1 % (0-3) Neutrophils # (Auto) 8.3 x10^3/uL (1.8-7.7) Lymphocytes # (Auto) 0.5 x10^3/uL (1.0-4.8) Monocytes # (Auto) 0.7 x10^3/uL (0.0-1.1) Eosinophils # (Auto) 0.0 x10^3/uL (0.0-0.7) Basophils # (Auto) 0.1 x10^3/uL (0.0-0.2) Sodium Level 138 mmol/L (136-145) Potassium Level 4.7 mmol/L (3.5-5.1) Chloride Level 104 mmol/L (98-107) Carbon Dioxide Level 27 mmol/L (21-32) Anion Gap 7 (6-14) Blood Urea Nitrogen 21 mg/dL (8-26) Creatinine 1.1 mg/dL (0.7-1.3) Estimated GFR (Cockcroft-Gault) 68.1 BUN/Creatinine Ratio 19 (6-20) Glucose Level 139 mg/dL (70-99) Calcium Level 8.3 mg/dL (8.5-10.1) Total Bilirubin 0.5 mg/dL (0.2-1.0) Aspartate Amino Transf (AST/SGOT) 41 U/L (15-37) Alanine Aminotransferase (ALT/SGPT) 135 U/L (16-63) Alkaline Phosphatase 89 U/L (46-116) Total Protein 6.1 g/dL (6.4-8.2) Albumin 2.2 g/dL (3.4-5.0) Albumin/Globulin Ratio 0.6 (1.0-1.7) Review of Systems Review of Systems: Patient denied nausea or vomiting. Assessment and Plan Assessmemt and Plan Problems Medical Problems: (1) Acute respiratory failure with hypoxia Status: Acute (2) COVID-19 Status: Acute (3) Multifocal pneumonia Status: Acute Acute respiratory failure with hypoxia Acute COVID-19 infection (Onset: 04/06/21) Acute multifocal pneumonia Plan: 1. COVID-19 protocol -Continue PO steriod taper, PO Augmentin, and PO doxycycline. vitamins and minerals, O2, Robitussin, and aspirin -Remdesiver stopped on 04/26 2. DVT prophylaxis: Lovenox 3. Trends labs 4. Encourage PO intake (regular diet) 5. Home meds 6. PT/OT 7. Full code. 8. Discharge disposition pending- anticipated when O2 requirements decrease to 2L Comment Review of Relevant I have reviewed the following items heidy (where applicable) has been applied. Medications: Current Medications Medications (Trade) Dose Ordered Sig/Annita Route PRN Reason Start Time Stop Time Status Last Admin Dose Admin Doxycycline Hyclate (Vibra-Tab) 100 mg BID PO 04/26/21 21:00 04/27/21 09:22 Amoxicillin/ Clavulanate Potassium (Augmentin 875/ 125mg) 1 tab BID PO 04/26/21 21:00 04/27/21 09:24 Methylprednisolone (Medrol) 4 mg BIDPCLD PO 04/26/21 12:30 04/26/21 17:31 DC 04/26/21 16:55 Methylprednisolone (Medrol) 4 mg TIDPC PO 04/27/21 08:30 04/27/21 17:31 04/27/21 09:24 Justifications for Admission Other Justification PORTER YEPEZ III DO Apr 27, 2021 10:56
[2021-04-27 11:00] VITALS: BP 113/74
[2021-04-27] MEDS: ENOXAPARIN 40 MG/0.4 ML SYRINGE. SQ SCH (12:03)
[2021-04-27 15:00] VITALS: BP 104/73
[2021-04-27 19:40] VITALS: BP 103/64
[2021-04-27] MEDS ORDERED: methylPREDNISolone 4 MG TABLET. PO SCH (21:00)
[2021-04-27] MEDS: diphenhydrAMINE HCL 25 MG CAPSULE PO PRN (22:58)
[2021-04-27 23:02] VITALS: BP 104/64
[2021-04-28 03:44] VITALS: BP 121/76
[2021-04-28 05:32] LABS: BASO % 0 % (0-3); EOS % 0 % (0-3); HEMATOCRIT 43.8 % (39.0-53.0); HEMOGLOBIN 14.9 g/dL (13.0-17.5); LYMPH # 0.5 x10^3/uL (1.0-4.8); LYMPH % 5 % (24-48); MEAN CORPUSCULAR HEMOGLOBIN 31 pg (25-35); MEAN CORPUSCULAR HGB CONC 34 g/dL (31-37); MEAN CORPUSCULAR VOLUME 90 fL (79-100); MONO # 0.6 x10^3/uL (0.0-1.1); MONO % 7 % (0-9); NEUT # 8.4 x10^3/uL (1.8-7.7); NEUT % 88 % (31-73); PLATELET COUNT 292 x10^3/uL (140-400); RED CELL DISTRIBUTION WIDTH 12.8 % (11.5-14.5); WHITE BLOOD COUNT 9.6 x10^3/uL (4.0-11.0)
[2021-04-28 05:50] LABS: ALBUMIN 2.3 g/dL (3.4-5.0); ALBUMIN/GLOBULIN RATIO 0.6 (1.0-1.7); CALCIUM 8.6 mg/dL (8.5-10.1); POTASSIUM 4.7 mmol/L (3.5-5.1); TOTAL BILIRUBIN 0.6 mg/dL (0.2-1.0)
[2021-04-28 07:00] VITALS: BP 116/76
[2021-04-28] MEDS: DOXYCYCLINE HYCLATE 100 MG TABLET PO SCH ×2 (08:29→20:50)
[2021-04-28] MEDS: ASPIRIN CHEWABLE 81 MG TABLET. PO SCH (08:29)
[2021-04-28] MEDS: MULTIVITAMIN with MINERAL TABLET. PO SCH (08:29)
[2021-04-28] MEDS: methylPREDNISolone 4 MG TABLET. PO SCH ×4 (08:29→20:51)
[2021-04-28] MEDS: AMOXICILLIN/K CLAV 875/125MG TABLET. PO SCH ×2 (08:29→20:51)
[2021-04-28] MEDS: LACTOBACILLUS RHAMNOSUS GG 1 CAPSULE. PO SCH ×2 (08:29→20:50)
[2021-04-28] MEDS: PANTOPRAZOLE 40 MG TABLET.DR. PO SCH (08:30)
--- NOTE | 2021-04-28 09:13 | PDOC ---
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 He presents with shortness of breath. He is COVID positive for the past 16 days. He states his symptoms are simply worsening. He cannot breathe. He can barely move. He increased his home meds, but that did not work. Moving makes it worse, sitting still makes it better. I discussed the case with ER physician. We are admitting the patient per COVID-19 protocol. 04/23: Patient seen and examined. Patient endorses minor improvement in symptoms. Currently on 5L O2 (04/25 Correction: 6L O2). Discussed with RN. Chart reviewed. 04/24: Patient seen and examined. He continues to be on 5L O2 (04/25 correction: 6L O2). He previously endorsed constipation and was started on laxatives; today he had 1 BM. He endorses acid reflux. Discussed with RN. Chart Reviewed. Labs show minor improvement, however, he appears in greater distress than previous day. 04/25: Patient seen and examined. His O2 requirements have decreased to 4.5L O2 per nasal cannula. He endorses feeling a lot better and looks less distressed. Exertional dyspnea continues to occur when walking to the bathroom. Discussed with RN. Chart reviewed. 04/26: Patient seen and examined. Discussed with RN. Chart reviewed. He endorses improvement in respiratory symptoms, however, mild dyspnea on exertion still present. He endorses decreased weakness. Continues to be on 4.5L O2 per nasal cannula. Discharge anticipated when O2 requirements decrease to 2L. 04/27: Patient seen and examined. Discussed with RN. Chart reviewed. He endorses continued improvement in respiratory symptoms. Mild dyspnea on exertion. Patient on 4.5L O2 per nasal cannula. Discharge anticipated when O2 requirements decrease to 2L. 04/28 : seen and examined. Discussed with RN. Chart reviewed. Mild dyspnea on exertion. Patient on 4.5L O2 per nasal cannula. Discharge anticipated when O2 requirements decrease to 2L. NOW ON 4.5 LITERS NC Vitals Vitals Vital Signs Date Time Temp Pulse Resp B/P (MAP) Pulse Ox O2 Delivery O2 Flow Rate FiO2 04/28/21 08:00 Nasal Cannula 4.5 04/28/21 07:00 98.2 68 18 116/76 (89) 93 98.2 Physical Exam General: Alert, Oriented X3, Cooperative, No acute distress Heart: Regular rate Lungs: Clear Abdomen: Normal bowel sounds, No tenderness Extremities: No clubbing, No cyanosis, No edema Labs LABS PATIENT: KATARINA REDDACCOUNT: [id number] : 1960 LOCATION: ER AGE: 60 SEX: M EXAM STATUS: PRE ER ORD. PHYSICIAN: REAL DE LA GARZA MD REASON: hypoxia, covid + PROCEDURE: CHEST AP ONLY XR CHEST 1V INDICATION: Reason: hypoxia, covid + / Spl. Instructions: / History: . COMPARISON STUDY: None. FINDINGS: Lungs: Normal lung volume. Patchy bilateral opacities. Pleura: No pleural effusion or pneumothorax. Heart and Mediastinum: The cardiomediastinal silhouette is normal. The great vessels of the thorax are normal. Bones and Soft Tissues: The bones and soft tissues are within normal limits. IMPRESSION: Patchy bilateral opacities, concerning for multifocal infection. Electronically signed by: Dre Turner MD (04/21/2021 10:08 PM) [facility] DICTATED and SIGNED BY: DRE TURNER MD DATE: 04/21/21 [id number] Laboratory Tests Test 04/28/21 04:30 White Blood Count 9.6 x10^3/uL (4.0-11.0) Red Blood Count 4.90 x10^6/uL (4.30-5.70) Hemoglobin 14.9 g/dL (13.0-17.5) Hematocrit 43.8 % (39.0-53.0) Mean Corpuscular Volume 90 fL (79-100) Mean Corpuscular Hemoglobin 31 pg (25-35) Mean Corpuscular Hemoglobin Concent 34 g/dL (31-37) Red Cell Distribution Width 12.8 % (11.5-14.5) Platelet Count 292 x10^3/uL (140-400) Neutrophils (%) (Auto) 88 % (31-73) Lymphocytes (%) (Auto) 5 % (24-48) Monocytes (%) (Auto) 7 % (0-9) Eosinophils (%) (Auto) 0 % (0-3) Basophils (%) (Auto) 0 % (0-3) Neutrophils # (Auto) 8.4 x10^3/uL (1.8-7.7) Lymphocytes # (Auto) 0.5 x10^3/uL (1.0-4.8) Monocytes # (Auto) 0.6 x10^3/uL (0.0-1.1) Eosinophils # (Auto) 0.0 x10^3/uL (0.0-0.7) Basophils # (Auto) 0.0 x10^3/uL (0.0-0.2) Sodium Level 137 mmol/L (136-145) Potassium Level 4.7 mmol/L (3.5-5.1) Chloride Level 104 mmol/L (98-107) Carbon Dioxide Level 30 mmol/L (21-32) Anion Gap 3 (6-14) Blood Urea Nitrogen 17 mg/dL (8-26) Creatinine 1.0 mg/dL (0.7-1.3) Estimated GFR (Cockcroft-Gault) 76.0 BUN/Creatinine Ratio 17 (6-20) Glucose Level 115 mg/dL (70-99) Calcium Level 8.6 mg/dL (8.5-10.1) Total Bilirubin 0.6 mg/dL (0.2-1.0) Aspartate Amino Transf (AST/SGOT) 33 U/L (15-37) Alanine Aminotransferase (ALT/SGPT) 122 U/L (16-63) Alkaline Phosphatase 74 U/L (46-116) Total Protein 6.0 g/dL (6.4-8.2) Albumin 2.3 g/dL (3.4-5.0) Albumin/Globulin Ratio 0.6 (1.0-1.7) Assessment and Plan Assessmemt and Plan Problems Medical Problems: (1) Acute respiratory failure with hypoxia Status: Acute (2) COVID-19 Status: Acute (3) Multifocal pneumonia Status: Acute Comment Review of Relevant I have reviewed the following items heidy (where applicable) has been applied. Labs Laboratory Tests Test 04/27/21 06:15 04/28/21 04:30 White Blood Count 9.6 x10^3/uL (4.0-11.0) 9.6 x10^3/uL (4.0-11.0) Red Blood Count 4.81 x10^6/uL (4.30-5.70) 4.90 x10^6/uL (4.30-5.70) Hemoglobin 14.8 g/dL (13.0-17.5) 14.9 g/dL (13.0-17.5) Hematocrit 42.7 % (39.0-53.0) 43.8 % (39.0-53.0) Mean Corpuscular Volume 89 fL (79-100) 90 fL (79-100) Mean Corpuscular Hemoglobin 31 pg (25-35) 31 pg (25-35) Mean Corpuscular Hemoglobin Concent 35 g/dL (31-37) 34 g/dL (31-37) Red Cell Distribution Width 12.8 % (11.5-14.5) 12.8 % (11.5-14.5) Platelet Count 294 x10^3/uL (140-400) 292 x10^3/uL (140-400) Neutrophils (%) (Auto) 86 % (31-73) 88 % (31-73) Lymphocytes (%) (Auto) 5 % (24-48) 5 % (24-48) Monocytes (%) (Auto) 8 % (0-9) 7 % (0-9) Eosinophils (%) (Auto) 0 % (0-3) 0 % (0-3) Basophils (%) (Auto) 1 % (0-3) 0 % (0-3) Neutrophils # (Auto) 8.3 x10^3/uL (1.8-7.7) 8.4 x10^3/uL (1.8-7.7) Lymphocytes # (Auto) 0.5 x10^3/uL (1.0-4.8) 0.5 x10^3/uL (1.0-4.8) Monocytes # (Auto) 0.7 x10^3/uL (0.0-1.1) 0.6 x10^3/uL (0.0-1.1) Eosinophils # (Auto) 0.0 x10^3/uL (0.0-0.7) 0.0 x10^3/uL (0.0-0.7) Basophils # (Auto) 0.1 x10^3/uL (0.0-0.2) 0.0 x10^3/uL (0.0-0.2) Sodium Level 138 mmol/L (136-145) 137 mmol/L (136-145) Potassium Level 4.7 mmol/L (3.5-5.1) 4.7 mmol/L (3.5-5.1) Chloride Level 104 mmol/L (98-107) 104 mmol/L (98-107) Carbon Dioxide Level 27 mmol/L (21-32) 30 mmol/L (21-32) Anion Gap 7 (6-14) 3 (6-14) Blood Urea Nitrogen 21 mg/dL (8-26) 17 mg/dL (8-26) Creatinine 1.1 mg/dL (0.7-1.3) 1.0 mg/dL (0.7-1.3) Estimated GFR (Cockcroft-Gault) 68.1 76.0 BUN/Creatinine Ratio 19 (6-20) 17 (6-20) Glucose Level 139 mg/dL (70-99) 115 mg/dL (70-99) Calcium Level 8.3 mg/dL (8.5-10.1) 8.6 mg/dL (8.5-10.1) Total Bilirubin 0.5 mg/dL (0.2-1.0) 0.6 mg/dL (0.2-1.0) Aspartate Amino Transf (AST/SGOT) 41 U/L (15-37) 33 U/L (15-37) Alanine Aminotransferase (ALT/SGPT) 135 U/L (16-63) 122 U/L (16-63) Alkaline Phosphatase 89 U/L (46-116) 74 U/L (46-116) Total Protein 6.1 g/dL (6.4-8.2) 6.0 g/dL (6.4-8.2) Albumin 2.2 g/dL (3.4-5.0) 2.3 g/dL (3.4-5.0) Albumin/Globulin Ratio 0.6 (1.0-1.7) 0.6 (1.0-1.7) Laboratory Tests Test 04/28/21 04:30 White Blood Count 9.6 x10^3/uL (4.0-11.0) Red Blood Count 4.90 x10^6/uL (4.30-5.70) Hemoglobin 14.9 g/dL (13.0-17.5) Hematocrit 43.8 % (39.0-53.0) Mean Corpuscular Volume 90 fL (79-100) Mean Corpuscular Hemoglobin 31 pg (25-35) Mean Corpuscular Hemoglobin Concent 34 g/dL (31-37) Red Cell Distribution Width 12.8 % (11.5-14.5) Platelet Count 292 x10^3/uL (140-400) Neutrophils (%) (Auto) 88 % (31-73) Lymphocytes (%) (Auto) 5 % (24-48) Monocytes (%) (Auto) 7 % (0-9) Eosinophils (%) (Auto) 0 % (0-3) Basophils (%) (Auto) 0 % (0-3) Neutrophils # (Auto) 8.4 x10^3/uL (1.8-7.7) Lymphocytes # (Auto) 0.5 x10^3/uL (1.0-4.8) Monocytes # (Auto) 0.6 x10^3/uL (0.0-1.1) Eosinophils # (Auto) 0.0 x10^3/uL (0.0-0.7) Basophils # (Auto) 0.0 x10^3/uL (0.0-0.2) Sodium Level 137 mmol/L (136-145) Potassium Level 4.7 mmol/L (3.5-5.1) Chloride Level 104 mmol/L (98-107) Carbon Dioxide Level 30 mmol/L (21-32) Anion Gap 3 (6-14) Blood Urea Nitrogen 17 mg/dL (8-26) Creatinine 1.0 mg/dL (0.7-1.3) Estimated GFR (Cockcroft-Gault) 76.0 BUN/Creatinine Ratio 17 (6-20) Glucose Level 115 mg/dL (70-99) Calcium Level 8.6 mg/dL (8.5-10.1) Total Bilirubin 0.6 mg/dL (0.2-1.0) Aspartate Amino Transf (AST/SGOT) 33 U/L (15-37) Alanine Aminotransferase (ALT/SGPT) 122 U/L (16-63) Alkaline Phosphatase 74 U/L (46-116) Total Protein 6.0 g/dL (6.4-8.2) Albumin 2.3 g/dL (3.4-5.0) Albumin/Globulin Ratio 0.6 (1.0-1.7) Medications Current Medications Dexamethasone Sodium Phosphate (Decadron) 6 mg 1X ONCE IVP Last administered on 04/21/21at 21:45; Start 04/21/21 at 21:30; Stop 04/21/21 at 21:31; Status DC Ceftriaxone Sodium (Rocephin) 1 gm 1X ONCE IVP Last administered on 04/21/21at 22:40; Start 04/21/21 at 22:30; Stop 04/21/21 at 22:31; Status DC Doxycycline Hyclate (Vibra-Tab) 100 mg 1X ONCE PO Last administered on 04/21/21at 22:40; Start 04/21/21 at 22:30; Stop 04/21/21 at 22:31; Status DC Multivitamins (Thera M Plus) 1 tab DAILY PO Last administered on 04/28/21at 08:29; Start 04/22/21 at 09:00 Aspirin (Aspirin Chewable) 81 mg [id number] PO Last administered on 04/28/21at 08:29; Start 04/23/21 at 08:00 Piperacillin Sod/ Tazobactam Sod (Zosyn Per Pharmacy) 1 each PRN DAILY PRN MC SEE COMMENTS; Start 04/22/21 at 08:15; Stop 04/26/21 at 12:20; Status DC Doxycycline Hyclate 100 mg/ Dextrose 100 ml @ 50 mls/hr Q12HR IV Last administered on 04/25/21at 20:31; Start 04/22/21 at 09:00; Stop 04/26/21 at 12:18; Status DC Guaifenesin/ Codeine Phosphate (Robitussin Ac) 5 ml PRN Q6HRS PRN PO COUGH Last administered on 04/26/21at 09:07; Start 04/22/21 at 08:15 Methylprednisolone Sodium Succinate (SOLU-Medrol 40MG VIAL) 40 mg BID IV Last administered on 04/25/21 20:30; Start 04/22/21 at 09:00; Stop 04/26/21 at 12:21; Status DC Piperacillin Sod/ Tazobactam Sod 3.375 gm/Sodium Chloride 50 ml @ 100 mls/hr Q6HRS IV Last administered on 04/26/21at 05:48; Start 04/22/21 at 08:00; Stop 04/26/21 at 12:21; Status DC Remdesivir 200 mg/ Sodium Chloride 210 ml @ 210 mls/hr 1X ONCE IV Last administered on 04/22/21at 11:47; Start 04/22/21 at 11:00; Stop 04/22/21 at 11:59; Status DC Remdesivir 100 mg/ Sodium Chloride 230 ml @ 460 mls/hr Q24H IV Last admini stered on 04/25/21at 12:00; Start 04/23/21 at 11:00; Stop 04/26/21 at 11:29; Status DC Lactobacillus Rhamnosus (Culturelle) 1 cap BID PO Last administered on 04/28/21at 08:29; Start 04/22/21 at 21:00 Docusate Sodium (Colace) 100 mg PRN DAILY PRN PO HARD STOOLS Last administered on 04/24/21at 08:41; Start 04/23/21 at 14:15 Polyethylene Glycol (miraLAX PACKET) 17 gm PRN DAILY PRN PO CONSTIPATION Last administered on 04/24/21at 08:41; Start 04/23/21 at 14:15 Diphenhydramine HCl (Benadryl) 25 mg PRN QHS PRN PO INSOMNIA Last administered on 04/27/21at 22:58; Start 04/23/21 at 22:15 Enoxaparin Sodium (Lovenox 40mg Syringe) 40 mg Q24H SQ Last administered on 04/27/21at 12:03; Start 04/24/21 at 12:00 Pantoprazole Sodium (Protonix) 40 mg DAILYAC PO Last administered on 04/28/21at 08:30; Start 04/24/21 at 12:00 Doxycycline Hyclate (Vibra-Tab) 100 mg BID PO Last administered on 04/28/21at 08:29; Start 04/26/21 at 21:00 Amoxicillin/ Clavulanate Potassium (Augmentin 875/ 125mg) 1 tab BID PO Last administered on 04/28/21at 08:29; Start 04/26/21 at 21:00 Methylprednisolone (Medrol) 8 mg BID PO Last administered on 04/26/21at 20:55; Start 04/26/21 at 09:00; Stop 04/26/21 at 21:01; Status DC Methylprednisolone (Medrol) 4 mg BIDPCLD PO Last administered on 04/26/21at 16:55; Start 04/26/21 at 12:30; Stop 04/26/21 at 17:31; Status DC Methylprednisolone (Medrol) 4 mg TIDPC PO Last administered on 04/27/21at 17:28; Start 04/27/21 at 08:30; Stop 04/27/21 at 17:31; Status DC Methylprednisolone (Medrol) 8 mg QHS PO Last administered on 04/27/21at 20:57; Start 04/27/21 at 21:00; Stop 04/27/21 at 21:01; Status DC Methylprednisolone (Medrol) 4 mg QIDAFTMEAL PO Last administered on 04/28/21at 08:29; Start 04/28/21 at 09:00; Stop 04/28/21 at 21:01 Methylprednisolone (Medrol) 4 mg TID PO ; Start 04/29/21 at 09:00; Stop 04/29/21 at 21:01 Methylprednisolone (Medrol) 4 mg BID PO ; Start 04/30/21 at 09:00; Stop 04/30/21 at 21:01 Methylprednisolone (Medrol) 4 mg DAILY PO ; Start 05/01/21 at 09:00; Stop 05/01/21 at 09:01 Active Scripts Active Reported [No Home Meds] Vitals/I & O Vital Sign - Last 24 Hours 04/27/21 04/27/21 04/27/21 04/27/21 11:00 15:00 19:40 20:25 Temp 97.5 97.8 98.8 97.5 97.8 98.8 Pulse 85 86 87 Resp 18 18 16 B/P (MAP) 113/74 (87) 104/73 (83) 103/64 (77) Pulse Ox 94 94 93 O2 Delivery Nasal Cannula Nasal Cannula Nasal Cannula O2 Flow Rate 4.5 4.5 4.5 04/27/21 04/28/21 04/28/21 04/28/21 23:02 03:44 07:00 08:00 Temp 98.5 98.2 98.2 98.5 98.2 98.2 Pulse 77 64 68 Resp 18 18 18 B/P (MAP) 104/64 (77) 121/76 (91) 116/76 (89) Pulse Ox 95 97 93 O2 Delivery Nasal Cannula Nasal Cannula Nasal Cannula Nasal Cannula O2 Flow Rate 4.5 4.5 4.5 4.5 Intake and Output 04/27/21 04/27/21 04/28/21 15:00 23:00 07:00 Intake Total 240 ml 180 ml Output Total 300 ml 300 ml Balance -60 ml -120 ml Justicifation of Admission Dx: Justifications for Admission: Justification of Admission Dx: Yes Comminuty Aquired Pneumonia: Hypoxemia KESHA CHAN MD Apr 28, 2021 09:13
[2021-04-28 11:00] VITALS: BP 99/70
--- NOTE | 2021-04-28 11:46 | NUR ---
SW following. Discussed with RN, pt from home with spouse, 4.5L (does not use oxygen at home), COVID-19 positive. Pt will need a 6 minute walk prior to discharge- SW awaiting testing. SW will continue to follow.
[2021-04-28] MEDS: ENOXAPARIN 40 MG/0.4 ML SYRINGE. SQ SCH (12:14)
[2021-04-28 15:24] VITALS: BP 102/68
--- NOTE | 2021-04-28 17:18 | RAD ---
XR CHEST 1V History: Reason: PNEUMONIA / Spl. Instructions: / History: Comparison: April 21, 2021 Findings: Multifocal ill-defined pulmonary opacities, slightly increased compared to prior. Possible small righ t pleural effusion, unchanged. No pneumothorax. Unchanged heart size. Impression: 1. Multifocal ill-defined opacities bilaterally, slightly increased compared to prior. Electronically signed by: Jacob Orozco DO (04/28/2021 5:15 PM) [id number]
[2021-04-28 19:00] VITALS: BP 111/73
[2021-04-28] MEDS: diphenhydrAMINE HCL 25 MG CAPSULE PO PRN (20:54)
[2021-04-28 23:09] VITALS: BP 110/72
[2021-04-29 03:02] VITALS: BP 110/81
[2021-04-29 07:00] VITALS: BP 121/80
[2021-04-29 07:53] LABS: BASO % 0 % (0-3); EOS # 0.1 x10^3/uL (0.0-0.7); EOS % 1 % (0-3); HEMATOCRIT 45.4 % (39.0-53.0); HEMOGLOBIN 15.7 g/dL (13.0-17.5); LYMPH # 0.7 x10^3/uL (1.0-4.8); LYMPH % 7 % (24-48); MEAN CORPUSCULAR HEMOGLOBIN 31 pg (25-35); MEAN CORPUSCULAR HGB CONC 35 g/dL (31-37); MEAN CORPUSCULAR VOLUME 90 fL (79-100); MONO # 0.8 x10^3/uL (0.0-1.1); MONO % 8 % (0-9); NEUT % 84 % (31-73); PLATELET COUNT 286 x10^3/uL (140-400); RED BLOOD COUNT 5.05 x10^6/uL (4.30-5.70); RED CELL DISTRIBUTION WIDTH 12.9 % (11.5-14.5); WHITE BLOOD COUNT 9.6 x10^3/uL (4.0-11.0)
[2021-04-29 08:13] LABS: ALBUMIN 2.5 g/dL (3.4-5.0); ALBUMIN/GLOBULIN RATIO 0.6 (1.0-1.7); CALCIUM 9.1 mg/dL (8.5-10.1); CREATININE 1.1 mg/dL (0.7-1.3); GFR 68.1; POTASSIUM 5.3 mmol/L (3.5-5.1); TOTAL BILIRUBIN 0.9 mg/dL (0.2-1.0); TOTAL PROTEIN 6.6 g/dL (6.4-8.2)
--- NOTE | 2021-04-29 08:59 | PDOC ---
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 He presents with shortness of breath. He is COVID positive for the past 16 days. He states his symptoms are simply worsening. He cannot breathe. He can barely move. He increased his home meds, but that did not work. Moving makes it worse, sitting still makes it better. I discussed the case with ER physician. We are admitting the patient per COVID-19 protocol. 04/23: Patient seen and examined. Patient endorses minor improvement in symptoms. Currently on 5L O2 (04/25 Correction: 6L O2). Discussed with RN. Chart reviewed. 04/24: Patient seen and examined. He continues to be on 5L O2 (04/25 correction: 6L O2). He previously endorsed constipation and was started on laxatives; today he had 1 BM. He endorses acid reflux. Discussed with RN. Chart Reviewed. Labs show minor improvement, however, he appears in greater distress than previous day. 04/25: Patient seen and examined. His O2 requirements have decreased to 4.5L O2 per nasal cannula. He endorses feeling a lot better and looks less distressed. Exertional dyspnea continues to occur when walking to the bathroom. Discussed with RN. Chart reviewed. 04/26: Patient seen and examined. Discussed with RN. Chart reviewed. He endorses improvement in respiratory symptoms, however, mild dyspnea on exertion still present. He endorses decreased weakness. Continues to be on 4.5L O2 per nasal cannula. Discharge anticipated when O2 requirements decrease to 2L. 04/27: Patient seen and examined. Discussed with RN. Chart reviewed. He endorses continued improvement in respiratory symptoms. Mild dyspnea on exertion. Patient on 4.5L O2 per nasal cannula. Discharge anticipated when O2 requirements decrease to 2L. 04/28 : seen and examined. Discussed with RN. Chart reviewed. Mild dyspnea on exertion. Patient on 4.5L O2 per nasal cannula. Discharge anticipated when O2 requirements decrease to 2L. NOW ON 4.5 LITERS NC 04/29 : seen and examined. Discussed with RN. Chart reviewed. Mild dyspnea on exertion. Patient on 4.5L O2 per nasal cannula. Discharge anticipated when O2 requirements decrease to 2L. NEEDS 6 MIN WALK HOME TODAY WITH O2 SUPPORT SEE PCP IN 5-7 DAYS D/C PLANNING 35 MIN Vitals Vitals Vital Signs Date Time Temp Pulse Resp B/P (MAP) Pulse Ox O2 Delivery O2 Flow Rate FiO2 04/29/21 07:00 97.7 68 18 121/80 (94) 92 Nasal Cannula 4.5 97.7 Physical Exam General: Alert, Oriented X3, Cooperative, No acute distress Heart: Regular rate, Normal S1, Normal S2 Lungs: Clear Abdomen: Normal bowel sounds, Soft, No tenderness, No masses Extremities: No clubbing, No cyanosis, No edema, No tenderness/swelling Skin: No significant lesion Labs LABS Laboratory Tests Test 04/29/21 07:05 White Blood Count 9.6 x10^3/uL (4.0-11.0) Red Blood Count 5.05 x10^6/uL (4.30-5.70) Hemoglobin 15.7 g/dL (13.0-17.5) Hematocrit 45.4 % (39.0-53.0) Mean Corpuscular Volume 90 fL (79-100) Mean Corpuscular Hemoglobin 31 pg (25-35) Mean Corpuscular Hemoglobin Concent 35 g/dL (31-37) Red Cell Distribution Width 12.9 % (11.5-14.5) Platelet Count 286 x10^3/uL (140-400) Neutrophils (%) (Auto) 84 % (31-73) Lymphocytes (%) (Auto) 7 % (24-48) Monocytes (%) (Auto) 8 % (0-9) Eosinophils (%) (Auto) 1 % (0-3) Basophils (%) (Auto) 0 % (0-3) Neutrophils # (Auto) 8.0 x10^3/uL (1.8-7.7) Lymphocytes # (Auto) 0.7 x10^3/uL (1.0-4.8) Monocytes # (Auto) 0.8 x10^3/uL (0.0-1.1) Eosinophils # (Auto) 0.1 x10^3/uL (0.0-0.7) Basophils # (Auto) 0.0 x10^3/uL (0.0-0.2) Sodium Level 140 mmol/L (136-145) Potassium Level 5.3 mmol/L (3.5-5.1) Chloride Level 103 mmol/L (98-107) Carbon Dioxide Level 35 mmol/L (21-32) Anion Gap 2 (6-14) Blood Urea Nitrogen 20 mg/dL (8-26) Creatinine 1.1 mg/dL (0.7-1.3) Estimated GFR (Cockcroft-Gault) 68.1 BUN/Creatinine Ratio 18 (6-20) Glucose Level 92 mg/dL (70-99) Calcium Level 9.1 mg/dL (8.5-10.1) Total Bilirubin 0.9 mg/dL (0.2-1.0) Aspartate Amino Transf (AST/SGOT) 27 U/L (15-37) Alanine Aminotransferase (ALT/SGPT) 113 U/L (16-63) Alkaline Phosphatase 72 U/L (46-116) Total Protein 6.6 g/dL (6.4-8.2) Albumin 2.5 g/dL (3.4-5.0) Albumin/Globulin Ratio 0.6 (1.0-1.7) Assessment and Plan Assessmemt and Plan Problems Medical Problems: (1) Acute respiratory failure with hypoxia Status: Acute (2) COVID-19 Status: Acute (3) Multifocal pneumonia Status: Acute Comment Review of Relevant I have reviewed the following items heidy (where applicable) has been applied. Labs Laboratory Tests Test 04/28/21 04:30 04/29/21 07:05 White Blood Count 9.6 x10^3/uL (4.0-11.0) 9.6 x10^3/uL (4.0-11.0) Red Blood Count 4.90 x10^6/uL (4.30-5.70) 5.05 x10^6/uL (4.30-5.70) Hemoglobin 14.9 g/dL (13.0-17.5) 15.7 g/dL (13.0-17.5) Hematocrit 43.8 % (39.0-53.0) 45.4 % (39.0-53.0) Mean Corpuscular Volume 90 fL (79-100) 90 fL (79-100) Mean Corpuscular Hemoglobin 31 pg (25-35) 31 pg (25-35) Mean Corpuscular Hemoglobin Concent 34 g/dL (31-37) 35 g/dL (31-37) Red Cell Distribution Width 12.8 % (11.5-14.5) 12.9 % (11.5-14.5) Platelet Count 292 x10^3/uL (140-400) 286 x10^3/uL (140-400) Neutrophils (%) (Auto) 88 % (31-73) 84 % (31-73) Lymphocytes (%) (Auto) 5 % (24-48) 7 % (24-48) Monocytes (%) (Auto) 7 % (0-9) 8 % (0-9) Eosinophils (%) (Auto) 0 % (0-3) 1 % (0-3) Basophils (%) (Auto) 0 % (0-3) 0 % (0-3) Neutrophils # (Auto) 8.4 x10^3/uL (1.8-7.7) 8.0 x10^3/uL (1.8-7.7) Lymphocytes # (Auto) 0.5 x10^3/uL (1.0-4.8) 0.7 x10^3/uL (1.0-4.8) Monocytes # (Auto) 0.6 x10^3/uL (0.0-1.1) 0.8 x10^3/uL (0.0-1.1) Eosinophils # (Auto) 0.0 x10^3/uL (0.0-0.7) 0.1 x10^3/uL (0.0-0.7) Basophils # (Auto) 0.0 x10^3/uL (0.0-0.2) 0.0 x10^3/uL (0.0-0.2) Sodium Level 137 mmol/L (136-145) 140 mmol/L (136-145) Potassium Level 4.7 mmol/L (3.5-5.1) 5.3 mmol/L (3.5-5.1) Chloride Level 104 mmol/L (98-107) 103 mmol/L (98-107) Carbon Dioxide Level 30 mmol/L (21-32) 35 mmol/L (21-32) Anion Gap 3 (6-14) 2 (6-14) Blood Urea Nitrogen 17 mg/dL (8-26) 20 mg/dL (8-26) Creatinine 1.0 mg/dL (0.7-1.3) 1.1 mg/dL (0.7-1.3) Estimated GFR (Cockcroft-Gault) 76.0 68.1 BUN/Creatinine Ratio 17 (6-20) 18 (6-20) Glucose Level 115 mg/dL (70-99) 92 mg/dL (70-99) Calcium Level 8.6 mg/dL (8.5-10.1) 9.1 mg/dL (8.5-10.1) Ferritin 1499 ng/mL (26-388) Total Bilirubin 0.6 mg/dL (0.2-1.0) 0.9 mg/dL (0.2-1.0) Aspartate Amino Transf (AST/SGOT) 33 U/L (15-37) 27 U/L (15-37) Alanine Aminotransferase (ALT/SGPT) 122 U/L (16-63) 113 U/L (16-63) Alkaline Phosphatase 74 U/L (46-116) 72 U/L (46-116) Total Protein 6.0 g/dL (6.4-8.2) 6.6 g/dL (6.4-8.2) Albumin 2.3 g/dL (3.4-5.0) 2.5 g/dL (3.4-5.0) Albumin/Globulin Ratio 0.6 (1.0-1.7) 0.6 (1.0-1.7) Laboratory Tests Test 04/29/21 07:05 White Blood Count 9.6 x10^3/uL (4.0-11.0) Red Blood Count 5.05 x10^6/uL (4.30-5.70) Hemoglobin 15.7 g/dL (13.0-17.5) Hematocrit 45.4 % (39.0-53.0) Mean Corpuscular Volume 90 fL (79-100) Mean Corpuscular Hemoglobin 31 pg (25-35) Mean Corpuscular Hemoglobin Concent 35 g/dL (31-37) Red Cell Distribution Width 12.9 % (11.5-14.5) Platelet Count 286 x10^3/uL (140-400) Neutrophils (%) (Auto) 84 % (31-73) Lymphocytes (%) (Auto) 7 % (24-48) Monocytes (%) (Auto) 8 % (0-9) Eosinophils (%) (Auto) 1 % (0-3) Basophils (%) (Auto) 0 % (0-3) Neutrophils # (Auto) 8.0 x10^3/uL (1.8-7.7) Lymphocytes # (Auto) 0.7 x10^3/uL (1.0-4.8) Monocytes # (Auto) 0.8 x10^3/uL (0.0-1.1) Eosinophils # (Auto) 0.1 x10^3/uL (0.0-0.7) Basophils # (Auto) 0.0 x10^3/uL (0.0-0.2) Sodium Level 140 mmol/L (136-145) Potassium Level 5.3 mmol/L (3.5-5.1) Chloride Level 103 mmol/L (98-107) Carbon Dioxide Level 35 mmol/L (21-32) Anion Gap 2 (6-14) Blood Urea Nitrogen 20 mg/dL (8-26) Creatinine 1.1 mg/dL (0.7-1.3) Estimated GFR (Cockcroft-Gault) 68.1 BUN/Creatinine Ratio 18 (6-20) Glucose Level 92 mg/dL (70-99) Calcium Level 9.1 mg/dL (8.5-10.1) Total Bilirubin 0.9 mg/dL (0.2-1.0) Aspartate Amino Transf (AST/SGOT) 27 U/L (15-37) Alanine Aminotransferase (ALT/SGPT) 113 U/L (16-63) Alkaline Phosphatase 72 U/L (46-116) Total Protein 6.6 g/dL (6.4-8.2) Albumin 2.5 g/dL (3.4-5.0) Albumin/Globulin Ratio 0.6 (1.0-1.7) Medications Current Medications Dexamethasone Sodium Phosphate (Decadron) 6 mg 1X ONCE IVP Last administered on 04/21/21at 21:45; Start 04/21/21 at 21:30; Stop 04/21/21 at 21:31; Status DC Ceftriaxone Sodium (Rocephin) 1 gm 1X ONCE IVP Last administered on 04/21/21at 22:40; Start 04/21/21 at 22:30; Stop 04/21/21 at 22:31; Status DC Doxycycline Hyclate (Vibra-Tab) 100 mg 1X ONCE PO Last administered on 04/21/21at 22:40; Start 04/21/21 at 22:30; Stop 04/21/21 at 22:31; Status DC Multivitamins (Thera M Plus) 1 tab DAILY PO Last administered on 04/28/21at 08:29; Start 04/22/21 at 09:00 Aspirin (Aspirin Chewable) 81 mg [id number] PO Last administered on 04/28/21at 08:29; Start 04/23/21 at 08:00 Piperacillin Sod/ Tazobactam Sod (Zosyn Per Pharmacy) 1 each PRN DAILY PRN MC SEE COMMENTS; Start 04/22/21 at 08:15; Stop 04/26/21 at 12:20; Status DC Doxycycline Hyclate 100 mg/ Dextrose 100 ml @ 50 mls/hr Q12HR IV Last administered on 04/25/21at 20:31; Start 04/22/21 at 09:00; Stop 04/26/21 at 12:18; Status DC Guaifenesin/ Codeine Phosphate (Robitussin Ac) 5 ml PRN Q6HRS PRN PO COUGH Last administered on 04/26/21at 09:07; Start 04/22/21 at 08:15 Methylprednisolone Sodium Succinate (SOLU-Medrol 40MG VIAL) 40 mg BID IV Last administered on 04/25/21at 20:30; Start 04/22/21 at 09:00; Stop 04/26/21 at 12:21; Status DC Piperacillin Sod/ Tazobactam Sod 3.375 gm/Sodium Chloride 50 ml @ 100 mls/hr Q 6HRS IV Last administered on 04/26/21at 05:48; Start 04/22/21 at 08:00; Stop 04/26/21 at 12:21; Status DC Remdesivir 200 mg/ Sodium Chloride 210 ml @ 210 mls/hr 1X ONCE IV Last administered on 04/22/21at 11:47; Start 04/22/21 at 11:00; Stop 04/22/21 at 11:59; Status DC Remdesivir 100 mg/ Sodium Chloride 230 ml @ 460 mls/hr Q24H IV Last administered on 04/25/21 12:00; Start 04/23/21 at 11:00; Stop 04/26/21 at 11:29; Status DC Lactobacillus Rhamnosus (Culturelle) 1 cap BID PO Last administered on 04/01 at 20:50; Start 04/22/21 at 21:00 Docusate Sodium (Colace) 100 mg PRN DAILY PRN PO HARD STOOLS Last administered on 04/24/21 08:41; Start 04/23/21 at 14:15 Polyethylene Glycol (miraLAX PACKET) 17 gm PRN DAILY PRN PO CONSTIPATION Last administered on 04/24/21 08:41; Start 04/23/21 at 14:15 Diphenhydramine HCl (Benadryl) 25 mg PRN QHS PRN PO INSOMNIA Last administered on 04/28/21 20:54; Start 04/23/21 at 22:15 Enoxaparin Sodium (Lovenox 40mg Syringe) 40 mg Q24H SQ Last administered on 04/28/21 12:14; Start 04/24/21 at 12:00 Pantoprazole Sodium (Protonix) 40 mg DAILYAC PO Last administered on 04/28/21 08:30; Start 04/24/21 at 12:00 Doxycycline Hyclate (Vibra-Tab) 100 mg BID PO Last administered on 04/28/21 20:50; Start 04/26/21 at 21:00 Amoxicillin/ Clavulanate Potassium (Augmentin 875/ 125mg) 1 tab BID PO Last administered on 04/28/21 20:51; Start 04/26/21 at 21:00 Methylprednisolone (Medrol) 8 mg BID PO Last administered on 04/26/21 20:55; Start 04/26/21 at 09:00; Stop 04/26/21 at 21:01; Status DC Methylprednisolone (Medrol) 4 mg BIDPCLD PO Last administered on 04/26/21 16:55; Start 04/26/21 at 12:30; Stop 04/26/21 at 17:31; Status DC Methylprednisolone (Medrol) 4 mg TIDPC PO Last administered on 8/29/21at 17:28; Start 04/27/21 at 08:30; Stop 04/27/21 at 17:31; Status DC Methylprednisolone (Medrol) 8 mg QHS PO Last administered on 04/27/21at 20:57; Start 04/27/21 at 21:00; Stop 04/27/21 at 21:01; Status DC Methylprednisolone (Medrol) 4 mg QIDAFTMEAL PO Last administered on 04/28/21at 2 0:51; Start 04/28/21 at 09:00; Stop 04/28/21 at 21:01; Status DC Methylprednisolone (Medrol) 4 mg TID PO ; Start 04/29/21 at 09:00; Stop 04/29/21 at 21:01 Methylprednisolone (Medrol) 4 mg BID PO ; Start 04/30/21 at 09:00; Stop 04/30/21 at 21:01 Methylprednisolone (Medrol) 4 mg DAILY PO ; Start 05/01/21 at 09:00; Stop 05/01/21 at 09:01 Active Scripts Active Reported [No Home Meds] Vitals/I & O Vital Sign - Last 24 Hours 04/28/21 04/28/21 04/28/21 04/28/21 11:00 15:24 19:00 20:00 Temp 98.0 98.1 98.1 98.0 98.1 98.1 Pulse 81 79 83 Resp 18 20 18 B/P (MAP) 99/70 (80) 102/68 (79) 111/73 (86) Pulse Ox 96 97 96 O2 Delivery Nasal Cannula Nasal Cannula Nasal Cannula Nasal Cannula O2 Flow Rate 4.5 4.5 4.5 4.5 04/28/21 04/29/21 04/29/21 23:09 03:02 07:00 Temp 97.7 98.0 97.7 97.7 98.0 97.7 Pulse 72 70 68 Resp 18 18 18 B/P (MAP) 110/72 (85) 110/81 (91) 121/80 (94) Pulse Ox 95 97 92 O2 Delivery Nasal Cannula Nasal Cannula Nasal Cannula O2 Flow Rate 4.5 4.5 4.5 Intake and Output 04/28/21 04/28/21 04/29/21 15:00 23:00 07:00 Intake Total 320 ml 200 ml 240 ml Balance 320 ml 200 ml 240 ml Justicifation of Admission Dx: Justifications for Admission: Justification of Admission Dx: Yes Comminuty Aquired Pneumonia: Hypoxemia KESHA CHAN MD Apr 29, 2021 08:59
[2021-04-29] MEDS: LACTOBACILLUS RHAMNOSUS GG 1 CAPSULE. PO SCH ×2 (10:19→21:36)
[2021-04-29] MEDS: MULTIVITAMIN with MINERAL TABLET. PO SCH (10:19)
[2021-04-29] MEDS: ASPIRIN CHEWABLE 81 MG TABLET. PO SCH (10:19)
[2021-04-29] MEDS: AMOXICILLIN/K CLAV 875/125MG TABLET. PO SCH ×2 (10:19→21:36)
[2021-04-29] MEDS: methylPREDNISolone 4 MG TABLET. PO SCH ×3 (10:20→21:36)
[2021-04-29] MEDS: DOXYCYCLINE HYCLATE 100 MG TABLET PO SCH ×2 (10:20→21:36)
[2021-04-29] MEDS: PANTOPRAZOLE 40 MG TABLET.DR. PO SCH (10:20)
--- NOTE | 2021-04-29 10:54 | PDOC3 ---
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 He presents with shortness of breath. He is COVID positive for the past 16 days. He states his symptoms are simply worsening. He cannot breathe. He can barely move. He increased his home meds, but that did not work. Moving makes it worse, sitting still makes it better. We are admitting the patient per COVID-19 protocol. HAS IMPROVED WILL D/C HOME TODAY AFTER 6 MIN WALK, O2 PLANNED FOR HOME USE PAST MEDICAL HISTORY: Benign. ALLERGIES: CODEINE. FAMILY HISTORY: Diabetes. SOCIAL HISTORY: Does not drink, smoke or take drugs. He works at the [employer]. MEDICATIONS: Reviewed, please refer to the medication. 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 He presents with shortness of breath. He is COVID positive for the past 16 days. He states his symptoms are simply worsening. He cannot breathe. He can barely move. He increased his home meds, but that did not work. Moving makes it worse, sitting still makes it better. I discussed the case with ER physician. We are admitting the patient per COVID-19 protocol. HOSPITAL COURSE 04/23: Patient seen and examined. Patient endorses minor improvement in symptoms. Currently on 5L O2 (04/25 Correction: 6L O2). Discussed with RN. Chart reviewed. 04/24: Patient seen and examined. He continues to be on 5L O2 (04/25 correction: 6L O2). He previously endorsed constipation and was started on laxatives; today he had 1 BM. He endorses acid reflux. Discussed with RN. Chart Reviewed. Labs show minor improvement, however, he appears in greater distress than previous day. 04/25: Patient seen and examined. His O2 requirements have decreased to 4.5L O2 per nasal cannula. He endorses feeling a lot better and looks less distressed. Exertional dyspnea continues to occur when walking to the bathroom. Discussed with RN. Chart reviewed. 04/26: Patient seen and examined. Discussed with RN. Chart reviewed. He endorses improvement in respiratory symptoms, however, mild dyspnea on exertion still present. He endorses decreased weakness. Continues to be on 4.5L O2 per nasal cannula. Discharge anticipated when O2 requirements decrease to 2L. 04/27: Patient seen and examined. Discussed with RN. Chart reviewed. He endorses continued improvement in respiratory symptoms. Mild dyspnea on exertion. Patient on 4.5L O2 per nasal cannula. Discharge anticipated when O2 requirements decrease to 2L. 04/28 : seen and examined. Discussed with RN. Chart reviewed. Mild dyspnea on exertion. Patient on 4.5L O2 per nasal cannula. Discharge anticipated when O2 requirements decrease to 2L. NOW ON 4.5 LITERS NC 04/29 : seen and examined. Discussed with RN. Chart reviewed. Mild dyspnea on exertion. Patient on 4.5L O2 per nasal cannula. Discharge anticipated when O2 requirements decrease to 2L. NEEDS 6 MIN WALK HOME TODAY WITH O2 SUPPORT SEE PCP IN 5-7 DAYS D/C PLANNING 35 MIN Vitals Vitals Vital Signs Date Time Temp Pulse Resp B/P (MAP) Pulse Ox O2 Delivery O2 Flow Rate FiO2 04/29/21 07:00 97.7 68 18 121/80 (94) 92 Nasal Cannula 4.5 97.7 Physical Exam General: Alert, Oriented X3, Cooperative, No acute distress Heart: Regular rate, Normal S1, Normal S2 Lungs: Clear Abdomen: Normal bowel sounds, Soft, No tenderness, No masses Extremities: No clubbing, No cyanosis, No edema, No tenderness/swelling Skin: No significant lesion FINAL DIAGNOSIS Problems Medical Problems: (1) Acute respiratory failure with hypoxia Status: Acute (2) COVID-19 Status: Acute (3) Multifocal pneumonia Status: Acute Brief Hospital Course Mr. Edward is a 60 old [sex] who presented with [ COVID 19 RESP FAILURE] CONDITION AT DISCHARGE: Improved Discharge Medications Current Medications Dexamethasone Sodium Phosphate (Decadron) 6 mg 1X ONCE IVP Last administered on 04/21/21at 21:45; Start 04/21/21 at 21:30; Stop 04/21/21 at 21:31; Status DC Ceftriaxone Sodium (Rocephin) 1 gm 1X ONCE IVP Last administered on 04/21/21at 22:40; Start 04/21/21 at 22:30; Stop 04/21/21 at 22:31; Status DC Doxycycline Hyclate (Vibra-Tab) 100 mg 1X ONCE PO Last administered on 04/21/21at 22:40; Start 04/21/21 at 22:30; Stop 04/21/21 at 22:31; Status DC Multivitamins (Thera M Plus) 1 tab DAILY PO Last administered on 04/29/21at 10:19; Start 04/22/21 at 09:00 Aspirin (Aspirin Chewable) 81 mg DAILYWBKFT PO Last administered on 04/29/21at 10:19; Start 04/23/21 at 08:00 Piperacillin Sod/ Tazobactam Sod (Zosyn Per Pharmacy) 1 each PRN DAILY PRN MC SEE COMMENTS; Start 04/22/21 at 08:15; Stop 04/26/21 at 12:20; Status DC Doxycycline Hyclate 100 mg/ Dextrose 100 ml @ 50 mls/hr Q12HR IV Last administered on 04/25/21at 20:31; Start 04/22/21 at 09:00; Stop 04/26/21 at 12:18 ; Status DC Guaifenesin/ Codeine Phosphate (Robitussin Ac) 5 ml PRN Q6HRS PRN PO COUGH Last administered on 04/26/21at 09:07; Start 04/22/21 at 08:15 Methylprednisolone Sodium Succinate (SOLU-Medrol 40MG VIAL) 40 mg BID IV Last administered on 04/25/21at 20:30; Start 04/22/21 at 09:00; Stop 04/26/21 at 12:21; Status DC Piperacillin Sod/ Tazobactam Sod 3.375 gm/Sodium Chloride 50 ml @ 100 mls/hr Q6HRS IV Last administered on 04/26/21at 05:48; Start 04/22/21 at 08:00; Stop 04/26/21 at 12:21; Status DC Remdesivir 200 mg/ Sodium Chloride 210 ml @ 210 mls/hr 1X ONCE IV Last administered on 04/22/21at 11:47; Start 04/22/21 at 11:00; Stop 04/22/21 at 11:59; Status DC Remdesivir 100 mg/ Sodium Chloride 230 ml @ 460 mls/hr Q24H IV Last administered on 04/25/21at 12:00; Start 04/23/21 at 11:00; Stop 04/26/21 at 11:29; Status DC Lactobacillus Rhamnosus (Culturelle) 1 cap BID PO Last administered on 04/29/21at 10:19; Start 04/22/21 at 21:00 Docusate Sodium (Colace) 100 mg PRN DAILY PRN PO HARD STOOLS Last administered on 04/24/21 08:41; Start 04/23/21 at 14:15 Polyethylene Glycol (miraLAX PACKET) 17 gm PRN DAILY PRN PO CONSTIPATION Last administered on 04/24/21 08:41; Start 04/23/21 at 14:15 Diphenhydramine HCl (Benadryl) 25 mg PRN QHS PRN PO INSOMNIA Last administered on 04/28/21at 20:54; Start 04/23/21 at 22:15 Enoxaparin Sodium (Lovenox 40mg Syringe) 40 mg Q24H SQ Last administered on 04/28/21 12:14; Start 04/24/21 at 12:00 Pantoprazole Sodium (Protonix) 40 mg DAILYAC PO Last administered on 04/29/21 10:20; Start 04/24/21 at 12:00 Doxycycline Hyclate (Vibra-Tab) 100 mg BID PO Last administered on 04/29/21at 10:20; Start 04/26/21 at 21:00 Amoxicillin/ Clavulanate Potassium (Augmentin 875/ 125mg) 1 tab BID PO Last administered on 04/29/21 10:19; Start 04/26/21 at 21:00 Methylprednisolone (Medrol) 8 mg BID PO Last administered on 04/26/21at 20:55; Start 04/26/21 at 09:00; Stop 04/26/21 at 21:01; Status DC Methylprednisolone (Medrol) 4 mg BIDPCLD PO Last administered on 04/26/21at 16:55; Start 04/26/21 at 12:30; Stop 04/26/21 at 17:31; Status DC Methylprednisolone (Medrol) 4 mg TIDPC PO Last administered on 04/27/21at 17:28; Start 04/27/21 at 08:30; Stop 04/27/21 at 17:31; Status DC Methylprednisolone (Medrol) 8 mg QHS PO Last administered on 04/27/21at 20:57; Start 04/27/21 at 21:00; Stop 04/27/21 at 21:01; Status DC Methylprednisolone (Medrol) 4 mg QIDAFTMEAL PO Last administered on 04/28/21at 20:51; Start 04/28/21 at 09:00; Stop 04/28/21 at 21:01; Status DC Methylprednisolone (Medrol) 4 mg TID PO Last administered on 04/29/21at 10:20; Start 04/29/21 at 09:00; Stop 04/29/21 at 21:01 Methylprednisolone (Medrol) 4 mg BID PO ; Start 04/30/21 at 09:00; Stop 04/30/21 at 21:01 Methylprednisolone (Medrol) 4 mg DAILY PO ; Start 05/01/21 at 09:00; Stop 05/01/21 at 09:01 Active Scripts Active Reported [No Home Meds] Vital Signs Vital Signs Date Time Temp Pulse Resp B/P (MAP) Pulse Ox O2 Delivery O2 Flow Rate FiO2 04/29/21 08:00 Nasal Cannula 4.5 04/29/21 07:00 97.7 68 18 121/80 (94) 92 97.7 Labs Laboratory Tests Test 04/28/21 04:30 04/29/21 07:05 White Blood Count 9.6 x10^3/uL (4.0-11.0) 9.6 x10^3/uL (4.0-11.0) Red Blood Count 4.90 x10^6/uL (4.30-5.70) 5.05 x10^6/uL (4.30-5.70) Hemoglobin 14.9 g/dL (13.0-17.5) 15.7 g/dL (13.0-17.5) Hematocrit 43.8 % (39.0-53.0) 45.4 % (39.0-53.0) Mean Corpuscular Volume 90 fL (79-100) 90 fL (79-100) Mean Corpuscular Hemoglobin 31 pg (25-35) 31 pg (25-35) Mean Corpuscular Hemoglobin Concent 34 g/dL (31-37) 35 g/dL (31-37) Red Cell Distribution Width 12.8 % (11.5-14.5) 12.9 % (11.5-14.5) Platelet Count 292 x10^3/uL (140-400) 286 x10^3/uL (140-400) Neutrophils (%) (Auto) 88 % (31-73) 84 % (31-73) Lymphocytes (%) (Auto) 5 % (24-48) 7 % (24-48) Monocytes (%) (Auto) 7 % (0-9) 8 % (0-9) Eosinophils (%) (Auto) 0 % (0-3) 1 % (0-3) Basophils (%) (Auto) 0 % (0-3) 0 % (0-3) Neutrophils # (Auto) 8.4 x10^3/uL (1.8-7.7) 8.0 x10^3/uL (1.8-7.7) Lymphocytes # (Auto) 0.5 x10^3/uL (1.0-4.8) 0.7 x10^3/uL (1.0-4.8) Monocytes # (Auto) 0.6 x10^3/uL (0.0-1.1) 0.8 x10^3/uL (0.0-1.1) Eosinophils # (Auto) 0.0 x10^3/uL (0.0-0.7) 0.1 x10^3/uL (0.0-0.7) Basophils # (Auto) 0.0 x10^3/uL (0.0-0.2) 0.0 x10^3/uL (0.0-0.2) Sodium Level 137 mmol/L (136-145) 140 mmol/L (136-145) Potassium Level 4.7 mmol/L (3.5-5.1) 5.3 mmol/L (3.5-5.1) Chloride Level 104 mmol/L (98-107) 103 mmol/L (98-107) Carbon Dioxide Level 30 mmol/L (21-32) 35 mmol/L (21-32) Anion Gap 3 (6-14) 2 (6-14) Blood Urea Nitrogen 17 mg/dL (8-26) 20 mg/dL (8-26) Creatinine 1.0 mg/dL (0.7-1.3) 1.1 mg/dL (0.7-1.3) Estimated GFR (Cockcroft-Gault) 76.0 68.1 BUN/Creatinine Ratio 17 (6-20) 18 (6-20) Glucose Level 115 mg/dL (70-99) 92 mg/dL (70-99) Calcium Level 8.6 mg/dL (8.5-10.1) 9.1 mg/dL (8.5-10.1) Ferritin 1499 ng/mL (26-388) Total Bilirubin 0.6 mg/dL (0.2-1.0) 0.9 mg/dL (0.2-1.0) Aspartate Amino Transf (AST/SGOT) 33 U/L (15-37) 27 U/L (15-37) Alanine Aminotransferase (ALT/SGPT) 122 U/L (16-63) 113 U/L (16-63) Alkaline Phosphatase 74 U/L (46-116) 72 U/L (46-116) Total Protein 6.0 g/dL (6.4-8.2) 6.6 g/dL (6.4-8.2) Albumin 2.3 g/dL (3.4-5.0) 2.5 g/dL (3.4-5.0) Albumin/Globulin Ratio 0.6 (1.0-1.7) 0.6 (1.0-1.7) Laboratory Tests Test 04/29/21 07:05 White Blood Count 9.6 x10^3/uL (4.0-11.0) Red Blood Count 5.05 x10^6/uL (4.30-5.70) Hemoglobin 15.7 g/dL (13.0-17.5) Hematocrit 45.4 % (39.0-53.0) Mean Corpuscular Volume 90 fL (79-100) Mean Corpuscular Hemoglobin 31 pg (25-35) Mean Corpuscular Hemoglobin Concent 35 g/dL (31-37) Red Cell Distribution Width 12.9 % (11.5-14.5) Platelet Count 286 x10^3/uL (140-400) Neutrophils (%) (Auto) 84 % (31-73) Lymphocytes (%) (Auto) 7 % (24-48) Monocytes (%) (Auto) 8 % (0-9) Eosinophils (%) (Auto) 1 % (0-3) Basophils (%) (Auto) 0 % (0-3) Neutrophils # (Auto) 8.0 x10^3/uL (1.8-7.7) Lymphocytes # (Auto) 0.7 x10^3/uL (1.0-4.8) Monocytes # (Auto) 0.8 x10^3/uL (0.0-1.1) Eosinophils # (Auto) 0.1 x10^3/uL (0.0-0.7) Basophils # (Auto) 0.0 x10^3/uL (0.0-0.2) Sodium Level 140 mmol/L (136-145) Potassium Level 5.3 mmol/L (3.5-5.1) Chloride Level 103 mmol/L (98-107) Carbon Dioxide Level 35 mmol/L (21-32) Anion Gap 2 (6-14) Blood Urea Nitrogen 20 mg/dL (8-26) Creatinine 1.1 mg/dL (0.7-1.3) Estimated GFR (Cockcroft-Gault) 68.1 BUN/Creatinine Ratio 18 (6-20) Glucose Level 92 mg/dL (70-99) Calcium Level 9.1 mg/dL (8.5-10.1) Total Bilirubin 0.9 mg/dL (0.2-1.0) Aspartate Amino Transf (AST/SGOT) 27 U/L (15-37) Alanine Aminotransferase (ALT/SGPT) 113 U/L (16-63) Alkaline Phosphatase 72 U/L (46-116) Total Protein 6.6 g/dL (6.4-8.2) Albumin 2.5 g/dL (3.4-5.0) Albumin/Globulin Ratio 0.6 (1.0-1.7) Allergies Allergies Coded Allergies Type Severity Reaction Last Updated Verified codeine Adverse Reaction Intermediate "FEELS LIKE FLU" 04/21/21 Yes Disposition/Orders: D/C to Home Justicifation of Admission Dx: Justifications for Admission: Justification of Admission Dx: Yes Comminuty Aquired Pneumonia: Hypoxemia KESHA CHAN MD Apr 29, 2021 10:54
[2021-04-29 11:00] VITALS: BP 130/78
[2021-04-29] MEDS ORDERED: ENOX40DI3 SQ (11:00)
[2021-04-29] MEDS ORDERED: METH4TAB PO (11:00)
[2021-04-29] MEDS ORDERED: PANT40TA77 PO (11:00)
[2021-04-29] MEDS ORDERED: DOCU100C28 PO (11:00)
[2021-04-29] MEDS ORDERED: LACT1CAP19 PO (11:00)
[2021-04-29] MEDS ORDERED: MULT1TAB92 PO (11:00)
[2021-04-29] MEDS ORDERED: DOXY100T PO (11:00)
[2021-04-29] MEDS ORDERED: AMOX1TAB11 PO (11:00)
[2021-04-29] MEDS ORDERED: ASPI-630 PO (11:00)
--- NOTE | 2021-04-29 11:02 | DISCH ---
DISCHARGE INSTRUCTIONS Condition on Discharge Condition on Discharge: Stable Activity After Discharge Activity Instructions for Disc: Activity as tolerated Lifting Instructions after Dis: No heavy lifting, No pulling or pushing Driving Instructions after Dis: Do not drive Diet after Discharge Diet after Discharge: Regular Liquid Texture: Thin Liquid Checks after Discharge Checks after discharge: Check blood press - daily Contacting the DR. after DC Call your doctor for: If your condition worsens Follow-Up Follow up with: SEE YOUR PCP IN 3-7 DAYS Treatment/Equipment after DC Discharge Respiratory Equipmen: Oxygen KESHA CHAN MD Apr 29, 2021 11:02
--- NOTE | 2021-04-29 11:13 | NUR ---
SW following. Discussed with RN, discharge order for home with self care, awaiting result of 6 minute walk. COVID-19 positive. SW will continue to follow.
[2021-04-29] MEDS: ENOXAPARIN 40 MG/0.4 ML SYRINGE. SQ SCH (12:24)
[2021-04-29 15:00] VITALS: BP 106/64
[2021-04-29 19:00] VITALS: BP 118/77
[2021-04-29] MEDS: diphenhydrAMINE HCL 25 MG CAPSULE PO PRN (21:36)
[2021-04-29 23:00] VITALS: BP 121/74
[2021-04-30 06:44] LABS: BASO # 0.1 x10^3/uL (0.0-0.2); BASO % 1 % (0-3); EOS # 0.1 x10^3/uL (0.0-0.7); EOS % 1 % (0-3); HEMATOCRIT 43.8 % (39.0-53.0); HEMOGLOBIN 15.3 g/dL (13.0-17.5); LYMPH # 0.8 x10^3/uL (1.0-4.8); LYMPH % 9 % (24-48); MEAN CORPUSCULAR HEMOGLOBIN 31 pg (25-35); MEAN CORPUSCULAR HGB CONC 35 g/dL (31-37); MEAN CORPUSCULAR VOLUME 90 fL (79-100); MONO # 0.8 x10^3/uL (0.0-1.1); MONO % 9 % (0-9); NEUT # 7.4 x10^3/uL (1.8-7.7); NEUT % 80 % (31-73); PLATELET COUNT 249 x10^3/uL (140-400); RED CELL DISTRIBUTION WIDTH 13.1 % (11.5-14.5); WHITE BLOOD COUNT 9.3 x10^3/uL (4.0-11.0)
[2021-04-30 06:56] LABS: ALBUMIN 2.4 g/dL (3.4-5.0); ALBUMIN/GLOBULIN RATIO 0.7 (1.0-1.7); CALCIUM 8.7 mg/dL (8.5-10.1); CREATININE 1.2 mg/dL (0.7-1.3); GFR 61.6; POTASSIUM 4.5 mmol/L (3.5-5.1); TOTAL BILIRUBIN 0.9 mg/dL (0.2-1.0)
[2021-04-30 07:00] VITALS: BP 121/82
[2021-04-30] MEDS: PANTOPRAZOLE 40 MG TABLET.DR. PO SCH (08:00)
[2021-04-30] MEDS: ASPIRIN CHEWABLE 81 MG TABLET. PO SCH (08:00)
[2021-04-30] MEDS: DOXYCYCLINE HYCLATE 100 MG TABLET PO SCH ×2 (10:12→20:54)
[2021-04-30] MEDS: AMOXICILLIN/K CLAV 875/125MG TABLET. PO SCH ×2 (10:12→20:54)
[2021-04-30] MEDS: MULTIVITAMIN with MINERAL TABLET. PO SCH (10:12)
[2021-04-30] MEDS: LACTOBACILLUS RHAMNOSUS GG 1 CAPSULE. PO SCH ×2 (10:12→20:54)
[2021-04-30] MEDS: methylPREDNISolone 4 MG TABLET. PO SCH ×2 (10:12→20:54)
--- NOTE | 2021-04-30 10:14 | PDOC ---
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 He presents with shortness of breath. He is COVID positive for the past 16 days. He states his symptoms are simply worsening. He cannot breathe. He can barely move. He increased his home meds, but that did not work. Moving makes it worse, sitting still makes it better. I discussed the case with ER physician. We are admitting the patient per COVID-19 protocol. 04/23: Patient seen and examined. Patient endorses minor improvement in symptoms. Currently on 5L O2 (04/25 Correction: 6L O2). Discussed with RN. Chart reviewed. 04/24: Patient seen and examined. He continues to be on 5L O2 (04/25 correction: 6L O2). He previously endorsed constipation and was started on laxatives; today he had 1 BM. He endorses acid reflux. Discussed with RN. Chart Reviewed. Labs show minor improvement, however, he appears in greater distress than previous day. 04/25: Patient seen and examined. His O2 requirements have decreased to 4.5L O2 per nasal cannula. He endorses feeling a lot better and looks less distressed. Exertional dyspnea continues to occur when walking to the bathroom. Discussed with RN. Chart reviewed. 04/26: Patient seen and examined. Discussed with RN. Chart reviewed. He endorses improvement in respiratory symptoms, however, mild dyspnea on exertion still present. He endorses decreased weakness. Continues to be on 4.5L O2 per nasal cannula. Discharge anticipated when O2 requirements decrease to 2L. 04/27: Patient seen and examined. Discussed with RN. Chart reviewed. He endorses continued improvement in respiratory symptoms. Mild dyspnea on exertion. Patient on 4.5L O2 per nasal cannula. Discharge anticipated when O2 requirements decrease to 2L. 04/28 : seen and examined. Discussed with RN. Chart reviewed. Mild dyspnea on exertion. Patient on 4.5L O2 per nasal cannula. Discharge anticipated when O2 requirements decrease to 2L. NOW ON 4.5 LITERS NC 04/29 : seen and examined. Discussed with RN. Chart reviewed. Mild dyspnea on exertion. Patient on 4.5L O2 per nasal cannula. Discharge anticipated when O2 requirements decrease to 2L. NEEDS 6 MIN WALK HOME TODAY WITH O2 SUPPORT SEE PCP IN 5-7 DAYS D/C PLANNING 35 MIN - : seen and examined. Discussed with RN. Chart reviewed. Mild dyspnea on exertion. Patient on 4.5L O2 per nasal cannula. Discharge anticipated when O2 requirements decrease to 2L. see 6 MIN WALK HOME TODAY WITH O2 SUPPORT SEE PCP IN 5-7 DAYS Vitals Vitals Vital Signs Date Time Temp Pulse Resp B/P (MAP) Pulse Ox O2 Delivery O2 Flow Rate FiO2 04/30/21 08:09 Room Air 04/30/21 07:00 98.2 68 17 121/82 (95) 92 98.2 Physical Exam General: Alert, Oriented X3, Cooperative, No acute distress Heart: Regular rate, Normal S1, Normal S2 Lungs: Clear Abdomen: Normal bowel sounds, Soft, No tenderness, No masses Extremities: No clubbing, No cyanosis, No edema, No tenderness/swelling Skin: No significant lesion Labs LABS Laboratory Tests Test 04/30/21 06:05 White Blood Count 9.3 x10^3/uL (4.0-11.0) Red Blood Count 4.90 x10^6/uL (4.30-5.70) Hemoglobin 15.3 g/dL (13.0-17.5) Hematocrit 43.8 % (39.0-53.0) Mean Corpuscular Volume 90 fL (79-100) Mean Corpuscular Hemoglobin 31 pg (25-35) Mean Corpuscular Hemoglobin Concent 35 g/dL (31-37) Red Cell Distribution Width 13.1 % (11.5-14.5) Platelet Count 249 x10^3/uL (140-400) Neutrophils (%) (Auto) 80 % (31-73) Lymphocytes (%) (Auto) 9 % (24-48) Monocytes (%) (Auto) 9 % (0-9) Eosinophils (%) (Auto) 1 % (0-3) Basophils (%) (Auto) 1 % (0-3) Neutrophils # (Auto) 7.4 x10^3/uL (1.8-7.7) Lymphocytes # (Auto) 0.8 x10^3/uL (1.0-4.8) Monocytes # (Auto) 0.8 x10^3/uL (0.0-1.1) Eosinophils # (Auto) 0.1 x10^3/uL (0.0-0.7) Basophils # (Auto) 0.1 x10^3/uL (0.0-0.2) Sodium Level 138 mmol/L (136-145) Potassium Level 4.5 mmol/L (3.5-5.1) Chloride Level 102 mmol/L (98-107) Carbon Dioxide Level 30 mmol/L (21-32) Anion Gap 6 (6-14) Blood Urea Nitrogen 21 mg/dL (8-26) Creatinine 1.2 mg/dL (0.7-1.3) Estimated GFR (Cockcroft-Gault) 61.6 BUN/Creatinine Ratio 18 (6-20) Glucose Level 98 mg/dL (70-99) Calcium Level 8.7 mg/dL (8.5-10.1) Total Bilirubin 0.9 mg/dL (0.2-1.0) Aspartate Amino Transf (AST/SGOT) 17 U/L (15-37) Alanine Aminotransferase (ALT/SGPT) 80 U/L (16-63) Alkaline Phosphatase 65 U/L (46-116) Total Protein 6.0 g/dL (6.4-8.2) Albumin 2.4 g/dL (3.4-5.0) Albumin/Globulin Ratio 0.7 (1.0-1.7) Assessment and Plan Assessmemt and Plan Problems Medical Problems: (1) Acute respiratory failure with hypoxia Status: Acute (2) COVID-19 Status: Acute (3) Multifocal pneumonia Status: Acute Comment Review of Relevant I have reviewed the following items heidy (where applicable) has been applied. Labs Laboratory Tests Test 04/29/21 07:05 04/30/21 06:05 White Blood Count 9.6 x10^3/uL (4.0-11.0) 9.3 x10^3/uL (4.0-11.0) Red Blood Count 5.05 x10^6/uL (4.30-5.70) 4.90 x10^6/uL (4.30-5.70) Hemoglobin 15.7 g/dL (13.0-17.5) 15.3 g/dL (13.0-17.5) Hematocrit 45.4 % (39.0-53.0) 43.8 % (39.0-53.0) Mean Corpuscular Volume 90 fL (79-100) 90 fL (79-100) Mean Corpuscular Hemoglobin 31 pg (25-35) 31 pg (25-35) Mean Corpuscular Hemoglobin Concent 35 g/dL (31-37) 35 g/dL (31-37) Red Cell Distribution Width 12.9 % (11.5-14.5) 13.1 % (11.5-14.5) Platelet Count 286 x10^3/uL (140-400) 249 x10^3/uL (140-400) Neutrophils (%) (Auto) 84 % (31-73) 80 % (31-73) Lymphocytes (%) (Auto) 7 % (24-48) 9 % (24-48) Monocytes (%) (Auto) 8 % (0-9) 9 % (0-9) Eosinophils (%) (Auto) 1 % (0-3) 1 % (0-3) Basophils (%) (Auto) 0 % (0-3) 1 % (0-3) Neutrophils # (Auto) 8.0 x10^3/uL (1.8-7.7) 7.4 x10^3/uL (1.8-7.7) Lymphocytes # (Auto) 0.7 x10^3/uL (1.0-4.8) 0.8 x10^3/uL (1.0-4.8) Monocytes # (Auto) 0.8 x10^3/uL (0.0-1.1) 0.8 x10^3/uL (0.0-1.1) Eosinophils # (Auto) 0.1 x10^3/uL (0.0-0.7) 0.1 x10^3/uL (0.0-0.7) Basophils # (Auto) 0.0 x10^3/uL (0.0-0.2) 0.1 x10^3/uL (0.0-0.2) Sodium Level 140 mmol/L (136-145) 138 mmol/L (136-145) Potassium Level 5.3 mmol/L (3.5-5.1) 4.5 mmol/L (3.5-5.1) Chloride Level 103 mmol/L (98-107) 102 mmol/L (98-107) Carbon Dioxide Level 35 mmol/L (21-32) 30 mmol/L (21-32) Anion Gap 2 (6-14) 6 (6-14) Blood Urea Nitrogen 20 mg/dL (8-26) 21 mg/dL (8-26) Creatinine 1.1 mg/dL (0.7-1.3) 1.2 mg/dL (0.7-1.3) Estimated GFR (Cockcroft-Gault) 68.1 61.6 BUN/Creatinine Ratio 18 (6-20) 18 (6-20) Glucose Level 92 mg/dL (70-99) 98 mg/dL (70-99) Calcium Level 9.1 mg/dL (8.5-10.1) 8.7 mg/dL (8.5-10.1) Total Bilirubin 0.9 mg/dL (0.2-1.0) 0.9 mg/dL (0.2-1.0) Aspartate Amino Transf (AST/SGOT) 27 U/L (15-37) 17 U/L (15-37) Alanine Aminotransferase (ALT/SGPT) 113 U/L (16-63) 80 U/L (16-63) Alkaline Phosphatase 72 U/L (46-116) 65 U/L (46-116) Total Protein 6.6 g/dL (6.4-8.2) 6.0 g/dL (6.4-8.2) Albumin 2.5 g/dL (3.4-5.0) 2.4 g/dL (3.4-5.0) Albumin/Globulin Ratio 0.6 (1.0-1.7) 0.7 (1.0-1.7) Laboratory Tests Test 04/30/21 06:05 White Blood Count 9.3 x10^3/uL (4.0-11.0) Red Blood Count 4.90 x10^6/uL (4.30-5.70) Hemoglobin 15.3 g/dL (13.0-17.5) Hematocrit 43.8 % (39.0-53.0) Mean Corpuscular Volume 90 fL (79-100) Mean Corpuscular Hemoglobin 31 pg (25-35) Mean Corpuscular Hemoglobin Concent 35 g/dL (31-37) Red Cell Distribution Width 13.1 % (11.5-14.5) Platelet Count 249 x10^3/uL (140-400) Neutrophils (%) (Auto) 80 % (31-73) Lymphocytes (%) (Auto) 9 % (24-48) Monocytes (%) (Auto) 9 % (0-9) Eosinophils (%) (Auto) 1 % (0-3) Basophils (%) (Auto) 1 % (0-3) Neutrophils # (Auto) 7.4 x10^3/uL (1.8-7.7) Lymphocytes # (Auto) 0.8 x10^3/uL (1.0-4.8) Monocytes # (Auto) 0.8 x10^3/uL (0.0-1.1) Eosinophils # (Auto) 0.1 x10^3/uL (0.0-0.7) Basophils # (Auto) 0.1 x10^3/uL (0.0-0.2) Sodium Level 138 mmol/L (136-145) Potassium Level 4.5 mmol/L (3.5-5.1) Chloride Level 102 mmol/L (98-107) Carbon Dioxide Level 30 mmol/L (21-32) Anion Gap 6 (6-14) Blood Urea Nitrogen 21 mg/dL (8-26) Creatinine 1.2 mg/dL (0.7-1.3) Estimated GFR (Cockcroft-Gault) 61.6 BUN/Creatinine Ratio 18 (6-20) Glucose Level 98 mg/dL (70-99) Calcium Level 8.7 mg/dL (8.5-10.1) Total Bilirubin 0.9 mg/dL (0.2-1.0) Aspartate Amino Transf (AST/SGOT) 17 U/L (15-37) Alanine Aminotransferase (ALT/SGPT) 80 U/L (16-63) Alkaline Phosphatase 65 U/L (46-116) Total Protein 6.0 g/dL (6.4-8.2) Albumin 2.4 g/dL (3.4-5.0) Albumin/Globulin Ratio 0.7 (1.0-1.7) Medications Current Medications Dexamethasone Sodium Phosphate (Decadron) 6 mg 1X ONCE IVP Last administered on 04/21/21at 21:45; Start 04/21/21 at 21:30; Stop 04/21/21 at 21:31; Status DC Ceftriaxone Sodium (Rocephin) 1 gm 1X ONCE IVP Last administered on 04/21/21at 22:40; Start 04/21/21 at 22:30; Stop 04/21/21 at 22:31; Status DC Doxycycline Hyclate (Vibra-Tab) 100 mg 1X ONCE PO Last administered on 04/21/21at 22:40; Start 04/21/21 at 22:30; Stop 04/21/21 at 22:31; Status DC Multivitamins (Thera M Plus) 1 tab DAILY PO Last administered on 04/29/21at 10:19; Start 04/22/21 at 09:00 Aspirin (Aspirin Chewable) 81 mg DAILYWBKFT PO Last administered on 04/30/21at 08:00; Start 04/23/21 at 08:00 Piperacillin Sod/ Tazobactam Sod (Zosyn Per Pharmacy) 1 each PRN DAILY PRN MC SEE COMMENTS; Start 04/22/21 at 08:15; Stop 04/26/21 at 12:20; Status DC Doxycycline Hyclate 100 mg/ Dextrose 100 ml @ 50 mls/hr Q12HR IV Last administered on 04/25/21at 20:31; Start 04/22/21 at 09:00; Stop 04/26/21 at 12:18; Status DC Guaifenesin/ Codeine Phosphate (Robitussin Ac) 5 ml PRN Q6HRS PRN PO COUGH Last administered on 04/26/21at 09:07; Start 04/22/21 at 08:15 Methylprednisolone Sodium Succinate (SOLU-Medrol 40MG VIAL) 40 mg BID IV Last administered on 04/25/21at 20:30; Start 04/22/21 at 09:00; Stop 04/26/21 at 12:21; Status DC Piperacillin Sod/ Tazobactam Sod 3.375 gm/Sodium Chloride 50 ml @ 100 mls/hr Q6HRS IV Last administered on 04/26/21at 05:48; Start 04/22/21 at 08:00; Stop 04/26/21 at 12:21; Status DC Remdesivir 200 mg/ Sodium Chloride 210 ml @ 210 mls/hr 1X ONCE IV Last administered on 04/22/21 11:47; Start 04/22/21 at 11:00; Stop 04/22/21 at 11:59; Status DC Remdesivir 100 mg/ Sodium Chloride 230 ml @ 460 mls/hr Q24H IV Last administered on 04/25/21at 12:00; Start 04/23/21 at 11:00; Stop 04/26/21 at 11:29; Status DC Lactobacillus Rhamnosus (Culturelle) 1 cap BID PO Last administered on 04/29/21 21:36; Start 04/22/21 at 21:00 Docusate Sodium (Colace) 100 mg PRN DAILY PRN PO HARD STOOLS Last administered on 04/24/21 08:41; Start 04/23/21 at 14:15 Polyethylene Glycol (miraLAX PACKET) 17 gm PRN DAILY PRN PO CONSTIPATION Last administered on 04/24/21 08:41; Start 04/23/21 at 14:15 Diphenhydramine HCl (Benadryl) 25 mg PRN QHS PRN PO INSOMNIA Last administered on 04/29/21 21:36; Start 04/23/21 at 22:15 Enoxaparin Sodium (Lovenox 40mg Syringe) 40 mg Q24H SQ Last administered on 04/29/21at 12:24; Start 04/24/21 at 12:00 Pantoprazole Sodium (Protonix) 40 mg DAILYAC PO Last administered on 04/30/21at 08:00; Start 04/24/21 at 12:00 Doxycycline Hyclate (Vibra-Tab) 100 mg BID PO Last administered on 04/29/21at 21:36; Start 04/26/21 at 21:00 Amoxicillin/ Clavulanate Potassium (Augmentin 875/ 125mg) 1 tab BID PO Last administered on 04/29/21 21:36; Start 04/26/21 at 21:00 Methylprednisolone (Medrol) 8 mg BID PO Last administered on 04/26/21 20:55; Start 04/26/21 at 09:00; Stop 04/26/21 at 21:01; Status DC Methylprednisolone (Medrol) 4 mg BIDPCLD PO Last administered on 04/26/21at 16:55; Start 04/26/21 at 12:30; Stop 04/26/21 at 17:31; Status DC Methylprednisolone (Medrol) 4 mg TIDPC PO Last administered on 04/27/21at 17:28; Start 04/27/21 at 08:30; Stop 04/27/21 at 17:31; Status DC Methylprednisolone (Medrol) 8 mg QHS PO Last administered on 04/27/21at 20:57; Start 04/27/21 at 21:00; Stop 04/27/21 at 21:01; Status DC Methylprednisolone (Medrol) 4 mg QIDAFTMEAL PO Last administered on 04/28/21at 20:51; Start 04/28/21 at 09:00; Stop 04/28/21 at 21:01; Status DC Methylprednisolone (Medrol) 4 mg TID PO Last administered on 04/29/21at 21:36; Start 04/29/21 at 09:00; Stop 04/29/21 at 21:01; Status DC Methylprednisolone (Medrol) 4 mg BID PO ; Start 04/30/21 at 09:00; Stop 04/30/21 at 21:01 Methylprednisolone (Medrol) 4 mg DAILY PO ; Start 05/01/21 at 09:00; Stop 05/01/21 at 09:01 Active Scripts Active Thera-M Tablet (Multivits,Ca,Minerals/Iron/Fa) 1 Each Tablet 1 Tab PO DAILY 30 Days Medrol (Methylprednisolone) 4 Mg Tablet 4 Mg PO DAILY 7 Days Culturelle (Lactobacillus Rhamnosus Gg) 1 Each Cap.sprink 1 Cap PO BID 30 Days Pantoprazole Sodium (Pantoprazole Sodium) 40 Mg Tablet.dr 40 Mg PO DAILYAC 30 Days Docusate Sodium 100 Mg Capsule 100 Mg PO PRN DAILY PRN 30 Days Aspirin 81 Mg Tab.chew 81 Mg PO DAILYWBKFT 30 Days Enoxaparin Sodium 40 Mg/0.4 Ml Disp.syrin 40 Mg SQ Q24H 30 Days Doxycycline Hyclate 100 Mg Tablet 100 Mg PO BID 7 Days Amox Tr-K Clv 875-125 Mg Tab (Amoxicillin/Potassium Clav) 1 Each Tablet 1 Tab PO BID 7 Days Vitals/I & O Vital Sign - Last 24 Hours 04/29/21 04/29/21 04/29/21 04/29/21 11:00 15:00 19:00 20:00 Temp 97.5 98.1 98.4 97.5 98.1 98.4 Pulse 85 90 90 Resp 18 18 19 B/P (MAP) 130/78 (95) 106/64 (78) 118/77 (91) Pulse Ox 90 93 91 O2 Delivery Nasal Cannula Nasal Cannula Room Air Room Air O2 Flow Rate 4.5 4.5 04/29/21 04/30/21 04/30/21 04/30/21 23:00 03:00 07:00 08:09 Temp 98.1 98.2 98.1 98.2 Pulse 78 68 Resp 18 17 B/P (MAP) 121/74 (90) 121/82 (95) Pulse Ox 91 92 O2 Delivery Nasal Cannula Room Air Room Air Room Air O2 Flow Rate 4.5 Intake and Output 04/29/21 04/29/21 04/30/21 15:00 23:00 07:00 Intake Total 300 ml Balance 300 ml Justicifation of Admission Dx: Justifications for Admission: Justification of Admission Dx: Yes Comminuty Aquired Pneumonia: Hypoxemia KESHA CHAN MD Apr 30, 2021 10:14
[2021-04-30 11:00] VITALS: BP 112/73
[2021-04-30] MEDS: ENOXAPARIN 40 MG/0.4 ML SYRINGE. SQ SCH (12:00)
--- NOTE | 2021-04-30 12:15 | NUR ---
SW following. Discussed with RN, pt failed 6 minute walk twice yesterday. Requiring room air at rest but 10L with activity. Awaiting repeat 6 minute walk. SW will continue to follow.
[2021-04-30 15:00] VITALS: BP 111/73
[2021-04-30 19:00] VITALS: BP 114/75
[2021-04-30] MEDS: diphenhydrAMINE HCL 25 MG CAPSULE PO PRN (20:54)
[2021-04-30 23:00] VITALS: BP 124/73
[2021-05-01 07:08] VITALS: BP 123/82
[2021-05-01] MEDS: PANTOPRAZOLE 40 MG TABLET.DR. PO SCH (08:20)
[2021-05-01] MEDS: DOXYCYCLINE HYCLATE 100 MG TABLET PO SCH (08:20)
[2021-05-01] MEDS: AMOXICILLIN/K CLAV 875/125MG TABLET. PO SCH (08:20)
[2021-05-01] MEDS: ASPIRIN CHEWABLE 81 MG TABLET. PO SCH (08:20)
[2021-05-01] MEDS: LACTOBACILLUS RHAMNOSUS GG 1 CAPSULE. PO SCH (08:20)
[2021-05-01] MEDS: MULTIVITAMIN with MINERAL TABLET. PO SCH (08:21)
[2021-05-01] MEDS ORDERED: methylPREDNISolone 4 MG TABLET. PO SCH (09:00)
--- NOTE | 2021-05-01 10:04 | PDOC ---
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 He presents with shortness of breath. He is COVID positive for the past 16 days. He states his symptoms are simply worsening. He cannot breathe. He can barely move. He increased his home meds, but that did not work. Moving makes it worse, sitting still makes it better. I discussed the case with ER physician. We are admitting the patient per COVID-19 protocol. 04/23: Patient seen and examined. Patient endorses minor improvement in symptoms. Currently on 5L O2 (04/25 Correction: 6L O2). Discussed with RN. Chart reviewed. 04/24: Patient seen and examined. He continues to be on 5L O2 (04/25 correction: 6L O2). He previously endorsed constipation and was started on laxatives; today he had 1 BM. He endorses acid reflux. Discussed with RN. Chart Reviewed. Labs show minor improvement, however, he appears in greater distress than previous day. 04/25: Patient seen and examined. His O2 requirements have decreased to 4.5L O2 per nasal cannula. He endorses feeling a lot better and looks less distressed. Exertional dyspnea continues to occur when walking to the bathroom. Discussed with RN. Chart reviewed. 04/26: Patient seen and examined. Discussed with RN. Chart reviewed. He endorses improvement in respiratory symptoms, however, mild dyspnea on exertion still present. He endorses decreased weakness. Continues to be on 4.5L O2 per nasal cannula. Discharge anticipated when O2 requirements decrease to 2L. 04/27: Patient seen and examined. Discussed with RN. Chart reviewed. He endorses continued improvement in respiratory symptoms. Mild dyspnea on exertion. Patient on 4.5L O2 per nasal cannula. Discharge anticipated when O2 requirements decrease to 2L. 04/28 : seen and examined. Discussed with RN. Chart reviewed. Mild dyspnea on exertion. Patient on 4.5L O2 per nasal cannula. Discharge anticipated when O2 requirements decrease to 2L. NOW ON 4.5 LITERS NC 04/29 : seen and examined. Discussed with RN. Chart reviewed. Mild dyspnea on exertion. Patient on 4.5L O2 per nasal cannula. Discharge anticipated when O2 requirements decrease to 2L. NEEDS 6 MIN WALK HOME TODAY WITH O2 SUPPORT SEE PCP IN 5-7 DAYS D/C PLANNING 35 MIN 04-30 : seen and examined. Discussed with RN. Chart reviewed. Mild dyspnea on exertion. Patient on 4.5L O2 per nasal cannula. Discharge anticipated when O2 requirements decrease to 2L. see 6 MIN WALK HOME TODAY WITH O2 SUPPORT SEE PCP IN 5-7 DAYS 05-01 : seen and examined. Discussed with RN. Chart reviewed. Mild dyspnea on exertion. Patient on ROOM AIR AT REST O2 per nasal cannula. Discharge anticipated when O2 requirements decrease to 3L. WITH EXERTION see 6 MIN WALK HOME TODAY WITH O2 SUPPORT SEE PCP IN 5-7 DAYS 6 Minute Walk Comments * Patient walked briskly around the nurse's station 5 laps. No dizziness, but became SOA after several minutes.RECOMMEND: room air/resting; 3 LPM NC/exertion. D/C PLANNING 34 MIN Vitals Vitals Vital Signs Date Time Temp Pulse Resp B/P (MAP) Pulse Ox O2 Delivery O2 Flow Rate FiO2 05/01/21 07:08 97.9 70 18 123/82 (96) 91 Room Air 97.9 04/30/21 23:00 4.5 Physical Exam General: Alert, Oriented X3, Cooperative, No acute distress Heart: Regular rate, Normal S1, Normal S2 Lungs: Clear Abdomen: Normal bowel sounds, Soft, No tenderness, No masses Extremities: No clubbing, No cyanosis, No edema, No tenderness/swelling Skin: No significant lesion Labs LABS Test Phase * Recovery SpO2 * 90 % Heart Rate * 88 beats/min Room Air * Yes Dyspnea * 0 6 Minute Walk Comments * Patient walked briskly around the nurse's station 5 laps. No dizziness, but became SOA after several minutes.RECOMMEND: room air/resting; 3 LPM NC/exertion. Assessment and Plan Assessmemt and Plan Problems Medical Problems: (1) Acute respiratory failure with hypoxia Status: Acute (2) COVID-19 Status: Acute (3) Multifocal pneumonia Status: Acute Comment Review of Relevant I have reviewed the following items heidy (where applicable) has been applied. Labs Laboratory Tests Test 04/30/21 06:05 White Blood Count 9.3 x10^3/uL (4.0-11.0) Red Blood Count 4.90 x10^6/uL (4.30-5.70) Hemoglobin 15.3 g/dL (13.0-17.5) Hematocrit 43.8 % (39.0-53.0) Mean Corpuscular Volume 90 fL (79-100) Mean Corpuscular Hemoglobin 31 pg (25-35) Mean Corpuscular Hemoglobin Concent 35 g/dL (31-37) Red Cell Distribution Width 13.1 % (11.5-14.5) Platelet Count 249 x10^3/uL (140-400) Neutrophils (%) (Auto) 80 % (31-73) Lymphocytes (%) (Auto) 9 % (24-48) Monocytes (%) (Auto) 9 % (0-9) Eosinophils (%) (Auto) 1 % (0-3) Basophils (%) (Auto) 1 % (0-3) Neutrophils # (Auto) 7.4 x10^3/uL (1.8-7.7) Lymphocytes # (Auto) 0.8 x10^3/uL (1.0-4.8) Monocytes # (Auto) 0.8 x10^3/uL (0.0-1.1) Eosinophils # (Auto) 0.1 x10^3/uL (0.0-0.7) Basophils # (Auto) 0.1 x10^3/uL (0.0-0.2) Sodium Level 138 mmol/L (136-145) Potassium Level 4.5 mmol/L (3.5-5.1) Chloride Level 102 mmol/L (98-107) Carbon Dioxide Level 30 mmol/L (21-32) Anion Gap 6 (6-14) Blood Urea Nitrogen 21 mg/dL (8-26) Creatinine 1.2 mg/dL (0.7-1.3) Estimated GFR (Cockcroft-Gault) 61.6 BUN/Creatinine Ratio 18 (6-20) Glucose Level 98 mg/dL (70-99) Calcium Level 8.7 mg/dL (8.5-10.1) Total Bilirubin 0.9 mg/dL (0.2-1.0) Aspartate Amino Transf (AST/SGOT) 17 U/L (15-37) Alanine Aminotransferase (ALT/SGPT) 80 U/L (16-63) Alkaline Phosphatase 65 U/L (46-116) Total Protein 6.0 g/dL (6.4-8.2) Albumin 2.4 g/dL (3.4-5.0) Albumin/Globulin Ratio 0.7 (1.0-1.7) Medications Current Medications Dexamethasone Sodium Phosphate (Decadron) 6 mg 1X ONCE IVP Last administered on 04/21/21at 21:45; Start 04/21/21 at 21:30; Stop 04/21/21 at 21:31; Status DC Ceftriaxone Sodium (Rocephin) 1 gm 1X ONCE IVP Last administered on 04/21/21at 22:40; Start 04/21/21 at 22:30; Stop 04/21/21 at 22:31; Status DC Doxycycline Hyclate (Vibra-Tab) 100 mg 1X ONCE PO Last administered on 04/21/21at 22:40; Start 04/21/21 at 22:30; Stop 04/21/21 at 22:31; Status DC Multivitamins (Thera M Plus) 1 tab DAILY PO Last administered on 05/01/21at 08:21; Start 04/22/21 at 09:00 Aspirin (Aspirin Chewable) 81 mg DAILYWBKFT PO Last administered on 05/01/21at 08:20; Start 04/23/21 at 08:00 Piperacillin Sod/ Tazobactam Sod (Zosyn Per Pharmacy) 1 each PRN DAILY PRN MC SEE COMMENTS; Start 04/22/21 at 08:15; Stop 04/26/21 at 12:20; Status DC Doxycycline Hyclate 100 mg/ Dextrose 100 ml @ 50 mls/hr Q12HR IV Last administered on 04/25/21at 20:31; Start 04/22/21 at 09:00; Stop 04/26/21 at 12:18; Status DC Guaifenesin/ Codeine Phosphate (Robitussin Ac) 5 ml PRN Q6HRS PRN PO COUGH Last administered on 04/26/21at 09:07; Start 04/22/21 at 08:15 Methylprednisolone Sodium Succinate (SOLU-Medrol 40MG VIAL) 40 mg BID IV Last administered on 04/25/21at 20:30; Start 04/22/21 at 09:00; Stop 04/26/21 at 12:21; Status DC Piperacillin Sod/ Tazobactam Sod 3.375 gm/Sodium Chloride 50 ml @ 100 mls/hr Q6HRS IV Last administered on 04/26/21at 05:48; Start 04/22/21 at 08:00; Stop 04/26/21 at 12:21; Status DC Remdesivir 200 mg/ Sodium Chloride 210 ml @ 210 mls/hr 1X ONCE IV Last administered on 04/22/21at 11:47; Start 04/22/21 at 11:00; Stop 04/22/21 at 11:59; Status DC Remdesivir 100 mg/ Sodium Chloride 230 ml @ 460 mls/hr Q24H IV Last administered on 04/25/21at 12:00; Start 04/23/21 at 11:00; Stop 04/26/21 at 11:29; Status DC Lactobacillus Rhamnosus (Culturelle) 1 cap BID PO Last administered on 05/01/21at 08:20; Start 04/22/21 at 21:00 Docusate Sodium (Colace) 100 mg PRN DAILY PRN PO HARD STOOLS Last administered on 04/24/21at 08:41; Start 04/23/21 at 14:15 Polyethylene Glycol (miraLAX PACKET) 17 gm PRN DAILY PRN PO CONSTIPATION Last administered on 04/24/21at 08:41; Start 04/23/21 at 14:15 Diphenhydramine HCl (Benadryl) 25 mg PRN QHS PRN PO INSOMNIA Last administered on 04/30/21at 20:54; Start 04/23/21 at 22:15 Enoxaparin Sodium (Lovenox 40mg Syringe) 40 mg Q24H SQ Last administered on 04/30/21at 12:00; Start 04/24/21 at 12:00 Pantoprazole Sodium (Protonix) 40 mg DAILYAC PO Last administered on 05/01/21at 08:20; Start 04/24/21 at 12:00 Doxycycline Hyclate (Vibra-Tab) 100 mg BID PO Last administered on 05/01/21at 08:20; Start 04/26/21 at 21:00 Amoxicillin/ Clavulanate Potassium (Augmentin 875/ 125mg) 1 tab BID PO Last administered on 05/01/21at 08:20; Start 04/26/21 at 21:00 Methylprednisolone (Medrol) 8 mg BID PO Last administered on 04/26/21at 20:55; Start 04/26/21 at 09:00; Stop 04/26/21 at 21:01; Status DC Methylprednisolone (Medrol) 4 mg BIDPCLD PO Last administered on 04/26/21at 16:55; Start 04/26/21 at 12:30; Stop 04/26/21 at 17:31; Status DC Methylprednisolone (Medrol) 4 mg TIDPC PO Last administered on 04/27/21at 17:28; Start 04/27/21 at 08:30; Stop 04/27/21 at 17:31; Status DC Methylprednisolone (Medrol) 8 mg QHS PO Last administered on 04/27/21at 20:57; Start 04/27/21 at 21:00; Stop 04/27/21 at 21:01; Status DC Methylprednisolone (Medrol) 4 mg QIDAFTMEAL PO Last administered on 04/28/21at 20:51; Start 04/28/21 at 09:00; Stop 04/28/21 at 21:01; Status DC Methylprednisolone (Medrol) 4 mg TID PO Last administered on 04/29/21at 21:36; Start 04/29/21 at 09:00; Stop 04/29/21 at 21:01; Status DC Methylprednisolone (Medrol) 4 mg BID PO Last administered on 04/30/21at 20:54; Start 04/30/21 at 09:00; Stop 04/30/21 at 21:01; Status DC Methylprednisolone (Medrol) 4 mg DAILY PO Last administered on 05/01/21at 08:21; Start 05/01/21 at 09:00; Stop 05/01/21 at 09:01; Status DC Active Scripts Active Thera-M Tablet (Multivits,Ca,Minerals/Iron/Fa) 1 Each Tablet 1 Tab PO DAILY 30 Days Medrol (Methylprednisolone) 4 Mg Tablet 4 Mg PO DAILY 7 Days Culturelle (Lactobacillus Rhamnosus Gg) 1 Each Cap.sprink 1 Cap PO BID 30 Days Pantoprazole Sodium (Pantoprazole Sodium) 40 Mg Tablet.dr 40 Mg PO DAILYAC 30 Days Docusate Sodium 100 Mg Capsule 100 Mg PO PRN DAILY PRN 30 Days Aspirin 81 Mg Tab.chew 81 Mg PO DAILYWBKFT 30 Days Enoxaparin Sodium 40 Mg/0.4 Ml Disp.syrin 40 Mg SQ Q24H 30 Days Doxycycline Hyclate 100 Mg Tablet 100 Mg PO BID 7 Days Amox Tr-K Clv 875-125 Mg Tab (Amoxicillin/Potassium Clav) 1 Each Tablet 1 Tab PO BID 7 Days Vitals/I & O Vital Sign - Last 24 Hours 04/30/21 04/30/21 04/30/21 04/30/21 11:00 15:00 19:00 20:00 Temp 97.5 98.6 98.2 97.5 98.6 98.2 Pulse 94 84 82 Resp 20 18 18 B/P (MAP) 112/73 (86) 111/73 (86) 114/75 (88) Pulse Ox 94 93 94 O2 Delivery Room Air Room Air Room Air Room Air 04/30/21 05/01/21 23:00 07:08 Temp 98.1 97.9 98.1 97.9 Pulse 80 70 Resp 18 18 B/P (MAP) 124/73 (90) 123/82 (96) Pulse Ox 94 91 O2 Delivery Room Air Room Air O2 Flow Rate 4.5 Intake and Output 04/30/21 04/30/21 05/01/21 15:00 23:00 07:00 Intake Total 440 ml 440 ml Balance 440 ml 440 ml Justicifation of Admission Dx: Justifications for Admission: Justification of Admission Dx: Yes Comminuty Aquired Pneumonia: Hypoxemia KESHA CHAN MD May 01, 2021 10:04
[2021-05-01 10:37] VITALS: BP 119/76
--- NOTE | 2021-05-01 12:44 | NUR ---
SS following up with discharge planning. SS reviewed pt chart and discussed with pt RN. Pt is currently on room air. Six minute walk completed and pt needing three liters with exertion. [facility] [phone], with clinical. Oxygen tank provided to pt for home. Discharge order on the chart to home.
[2021-05-01] MEDS: ENOXAPARIN 40 MG/0.4 ML SYRINGE. SQ SCH (13:07)
--- NOTE | 2021-05-01 14:45 | NUR ---
Discharge Note: Patient was discharged home with self care. Patient was sent home with oxygen at 3L with exertion. Patient did not have any IV to discontinue. Patient was discharge summary/instructions, follow-ups, and educational material. Patients new prescriptions were sent to pharmacy. Patient did not have any further questions or concerns. Patient was taken down to the main entrance via wheelchair with all personal belongings, accompanied by this RN, where patients ride was waiting for him to take him home.
== END 2021-05-01 14:30 | disposition home or self-care (01) | DRG 177 ==
LOC: ER 21:15 → ED HOLD 22:40 → 5 SOUTH 04-22 00:09
PROVIDERS: ADMIT Internal Medicine; ATTEND Internal Medicine
PROC: XW033E5 Introduction of Remdesivir Anti-infective into Peripheral Vein, Percutaneous Approach, New Technology Group 5 (ICD-10-PCS; principal; 2021-04-22)
PROC: 5A0935A Assistance with Respiratory Ventilation, Less than 24 Consecutive Hours, High Flow/Velocity Cannula (ICD-10-PCS; 2021-04-23)
DX: U07.1 COVID-19 (principal); J12.82 Pneumonia due to coronavirus disease 2019; J96.01 Acute respiratory failure with hypoxia; K21.9 Gastro-esophageal reflux disease without esophagitis; K59.00 Constipation, unspecified; Z83.3 Family history of diabetes mellitus; Z88.8 Allergy status to other drugs, medicaments and biological substances; Z79.899 Other long term (current) drug therapy
CPT/HCPCS: 36415; 71045; 80053; 82728; 85007; 85025; 93005; 94618; J0696; J1100; J1650; J2543; J2920; J3490; J7050; J7060; J7509; 97530-GP; 99285-25; G0378; J7030; Q0163